=== PATIENT | male | born 1945 | race Caucasian/White ===

== ENCOUNTER 2018-02-04 15:25 | Inpatient (IN) | payer MEDICAID ==
[2018-02-04 15:44] VITALS: BMI 25.4
[2018-02-04] MEDS ORDERED: TDAP Vaccine 0.5 mL Syr IM ONE (16:08)
[2018-02-04] MEDS ORDERED: Bacitracin 500 Units/gm Oint Foilpak UD TOP ONE (16:14)
--- NOTE | 2018-02-04 16:30 | ED PDOC ---
Arrival/HPI - General Chief Complaint: Trauma Time Seen by Provider: 02/04/18 15:30 Historian: Patient, Family, Financial Officer (Son) - History of Present Illness Narrative History of Present Illness (Text): 02/04/18 16:22 A 73 year old male, whose past medical history includes diabetes, hypertension, GI bleed, and an CT with stent, presents to the emergency department accompanied by family s/p fall from earlier today. Patient refuses using boilermaker machine and requests son to translate. Patient reports he was walking when he started feeling lightheaded proceeding to faint and fell on his face and both of his knees. Patient is complaining of pain to left upper mouth and right knee. Patient states tetanus shot is not up to date. Patient denies any visual complaints, loose teeth, left knee pain, fever, chills, shortness of breath, chest pain, diarrhea, nausea, vomiting, urinary symptoms, back pain, neck pain, headache, dizziness, or any other complaints. PMD: Dr. Garcia Time/Duration: Prior to Arrival Symptom Onset: Sudden Activities at Onset: Light Context: Walking Past Medical History - Provider Review Nursing Documentation Reviewed: Yes - Infectious Disease Hx of Infectious Diseases: None - Tetanus Immunization Tetanus Immunization: Unknown - Cardiac Hx Pacemaker: No - Pulmonary Hx Respiratory Disorders: No - Neurological Hx Paralysis: No - HEENT Hx HEENT Disorder: Yes Hx Glaucoma: Yes - Renal Hx Renal Disorder: No - Endocrine/Metabolic Hx Endocrine Disorders: Yes - Hematological/Oncological Hx Blood Transfusions: No - Integumentary Hx Dermatological Disorder: No Other/Comment: multiple skin discolorations ble - Musculoskeletal/Rheumatological Hx Musculoskeletal Disorders: No - Gastrointestinal Hx Gastrointestinal Disorders: No - Genitourinary/Gynecological Hx Genitourinary Disorders: No - Psychiatric Hx Emotional Abuse: No Hx Physical Abuse: No Hx Substance Use: No - Surgical History Hx Appendectomy: Yes Hx Cardiac Catheterization: Yes Hx Coronary Stent: Yes - Anesthesia Hx Anesthesia Reactions: No Hx Malignant Hyperthermia: No - Suicidal Assessment Feels Threatened In Home Enviroment: No Family/Social History - Physician Review Nursing Documentation Reviewed: Yes Family/Social History: Unknown Family HX Smoking Status: Former Smoker Hx Alcohol Use: No Hx Substance Use: No Allergies/Home Meds Allergies/Adverse Reactions: Allergies No Known Allergies Allergy (Verified 05/29/16 08:26) Home Medications: Home Meds Medication Instructions Recorded Confirmed Glipizide [Glipizide Xl] 5 mg PO DAILY 01/07/16 06/23/16 Simvastatin [Zocor] 40 mg PO DAILY 01/07/16 06/23/16 Dorzolamide HCl/Timolol Maleat 1 drop BOTHEYES BID 05/29/16 06/23/16 [Dorzolamide-Timolol Eye Drops] Latanoprost 0.005% Opht [Xalatan 1 drop BOTHEYES HS 05/29/16 06/23/16 Opht] Tobramycin 0.3% [Tobrex 0.3% Ophth 1 drop LEFTEYE QID 05/29/16 06/23/16 Oint] Aspirin [Ecotrin] 81 mg PO DAILY 06/17/16 06/23/16 Lisinopril [Zestril] 10 mg PO DAILY 06/17/16 06/23/16 Metoprolol Tartrate [Lopressor] 12.5 tab PO BID 06/17/16 06/23/16 acetaZOLAMIDE [Acetazolamide] 500 mg PO BID 06/17/16 06/23/16 Review of Systems - Physician Review All systems were reviewed & negative as marked: Yes - Review of Systems Constitutional: absent: Fevers, Night Sweats Eyes: absent: Vision Changes (no visual complaints) ENT: Other (+pain to left upper mouth; no loose teeth) Respiratory: absent: SOB Cardiovascular: absent: Chest Pain Gastrointestinal: absent: Diarrhea, Nausea, Vomiting Genitourinary Male: absent: Urinary Output Changes Musculoskeletal: Other (+right knee pain, no left knee pain). absent: Back Pain, Neck Pain Neurological: absent: Headache, Dizziness Physical Exam Vital Signs Reviewed: Yes Vital Signs Temp Pulse Resp BP Pulse Ox 02/04/18 15:25 98 F 65 18 155/62 H 99 Temperature: Afebrile Blood Pressure: Hypertensive Pulse: Regular Respiratory Rate: Normal Appearance: Positive for: Well-Appearing, Non-Toxic, Comfortable Pain Distress: None Mental Status: Positive for: Alert and Oriented X 3 - Systems Exam Head: Present: Atraumatic, Normocephalic Pupils: Present: PERRL Extroacular Muscles: Present: EOMI Conjunctiva: Present: Normal Mouth: Present: Normal Lips (+superficial skin evulsion above left lip), Other (+left front tooth had mild bleeding to gums, not loose) Nose (External): No: Laceration Neck: Present: Normal Range of Motion Respiratory/Chest: Present: Clear to Auscultation, Good Air Exchange. No: Respiratory Distress, Accessory Muscle Use Cardiovascular: Present: Regular Rate and Rhythm, Normal S1, S2. No: Murmurs Abdomen: No: Tenderness, Distention, Peritoneal Signs Back: No: CVA Tenderness, Midline Tenderness Upper Extremity: Present: Normal Inspection. No: Cyanosis, Edema Lower Extremity: Present: NORMAL PULSES, Normal ROM, Tenderness (+tenderness to right knee) Neurological: Present: GCS=15, CN II-XII Intact, Speech Normal Skin: Present: Abrasion (+right knee abrasion, right knee greater than left knee) Psychiatric: Present: Alert, Oriented x 3, Normal Insight, Normal Concentration Medical Decision Making ED Course and Treatment: 02/04/18 16:40 Impression: 73 year old male presenting to the emergency department s/p fall. Differential Diagnosis included but are not limited to: syncope, rule out cardiac vs. neuro rule out facial fracture and knee fracture Plan: -- Head CT without contrast -- CT of Orbits and Facial without contrast -- EKG -- Labs -- CBC -- COAGs -- Chest X-ray -- Tylenol -- Bacitracin -- Boostrix vaccine -- Xray of knees bilaterally -- Reassess and disposition Prior Visits: Notes and results from previous visits were reviewed. Progress Notes: 02/04/18 16:45 EKG: Ordered, reviewed, and independently interpreted the EKG. Rate : 57 BPM Rhythm : Sinus bradycardia Interpretation : No ST-segment elevations or depressions, no T-wave inversions, normal intervals. 02/04/18 17:52 Chest and Knee Xray were reviewed by me, shows results are negative. Procedure: Head CT wihtout contrast Impression: Small chronic lacune left basal ganglia. Chronic lobar infarction inferior right cerebellum. Age-appropriate age related neuro degenerative change identified. Follow-up MRI or CT are available if clinically warranted. Dictator: Brian Velazquez MD Procedure: CT Maxillofacial bones without contrast Impression: Unremarkable non contrast enhanced CT of the maxillofacial bones. Dictator: Aurelio House 02/04/18 18:15 Case was discussed with Dr. Sewell who will place on the service. Consult requested for Dr. Pate who is on service. - RAD Interpretation Radiology Orders: 02/04/18 16:06 HEAD W/O CONTRAST [CT] Stat ORBITS/ FACIALS W/O CONTRAST [CT] Stat CXR [CHEST ONE VIEW] [RAD] Stat KNEES BILATERAL [RAD] Stat - Medication Orders Current Medication Orders: Discontinued Medications Acetaminophen (Tylenol 325mg Tab) 650 mg PO STAT STA Stop: 02/04/18 16:09 Bacitracin (Bacitracin) 1 ea TOP ONCE ONE Stop: 02/04/18 16:15 Tetanus/Reduced Diphtheria/Acell Pertussis (Boostrix Vaccine Inj) 0.5 ml IM .ONCE ONE Stop: 02/04/18 16:09 - Scribe Statement The provider has reviewed the documentation as recorded by the Tonyibelza Gonzalez All medical record entries made by the Tonyibe were at my direction and personally dictated by me. I have reviewed the chart and agree that the record accurately reflects my personal performance of the history, physical exam, medical decision making, and the department course for this patient. I have also personally directed, reviewed, and agree with the discharge instructions and disposition. Disposition/Present on Arrival - Present on Arrival Any Indicators Present on Arrival: No History of DVT/PE: No History of Uncontrolled Diabetes: No Urinary Catheter: No History of Decub. Ulcer: No History Surgical Site Infection Following: None - Disposition Have Diagnosis and Disposition been Completed?: Yes Diagnosis: Syncope Disposition: HOSPITALIZED Disposition Time: 18:16 Patient Plan: Observation Condition: FAIR Discharge Instructions (ExitCare): Syncope (ED) Forms: SeeJay (Mongolian)
[2018-02-04 17:16] LABS: BASO # 0.03 K/mm3 (0.0-2.0); BASO % 0.3 % (0.0-3.0); EOS # 0.3 (0.0-0.7); EOS % 3.4 % (1.5-5.0); GRAN # 7.11 (1.4-6.5); HEMOGLOBIN 14.8 g/dL (14.0-18.0); LYMPH # 1.3 (1.2-3.4); LYMPH % 14.1 % (22.0-35.0); MEAN CELL VOLUME 98.2 fl (80.0-105.0); MEAN CORPUSCULAR HGB CONC 33.6 g/dl (31.0-37.0); MEAN PLATELET VOLUME 11.2 fl (7.0-11.0); MONO # 0.6 (0.1-0.6); MONO % 6.2 % (1.0-6.0); RBC 4.49 10^6/uL (3.5-6.1); RED CELL DISTRIBUTION WIDTH 14.3 % (11.5-14.5); WHITE BLOOD COUNT 9.4 10^3/ul (4.5-11.0)
[2018-02-04 17:17] LABS: INR 1.03; PARTIAL THROMBOPLASTIN TIME 35.3 Seconds (25.1-36.5); PROTHROMBIN TIME 11.8 SECONDS (9.4-12.5)
[2018-02-04 17:19] LABS: ALB/GLOB RATIO 1.5 (1.1-1.8); ALBUMIN 4.2 g/dL (3.0-4.8); ALT/SGPT 28 U/L (7-56); AST/SGOT 26 U/L (17-59); BLOOD UREA NITROGEN 25 mg/dL (7-21); CALCIUM 8.8 mg/dL (8.4-10.5); GFR NON-AFRICAN AMERICAN 42
--- NOTE | 2018-02-04 17:23 | CT ---
Date of service: 02/04/2018 PROCEDURE: CT HEAD WITHOUT CONTRAST. HISTORY: r/o cva COMPARISON: None available. TECHNIQUE: Axial computed tomography images were obtained through the head/brain without intravenous contrast. Radiation dose: Total exam DLP = 1084.56 mGy-cm. This CT exam was performed using one or more of the following dose reduction techniques: Automated exposure control, adjustment of the mA and/or kV according to patient size, and/or use of iterative reconstruction technique. FINDINGS: HEMORRHAGE: No intracranial hemorrhage. BRAIN: Good corticomedullary differentiation is seen. Proportional, diffuse expansion of the ventriculosulcal and cisternal spaces is appreciated with white matter lucency compatible with diffuse cerebral atrophy and chronic microangiopathy. A chronic lobar infarct at the inferior right cerebellum is identified. A small chronic lacune is seen at the left basal ganglia. No suspicious extra-axial fluid collection is identified and the midline brain anatomy appears grossly nonfocal as imaged. There is no mass effect throughout. VENTRICLES: Unremarkable. No hydrocephalus. CALVARIUM: Unremarkable. PARANASAL SINUSES: Unremarkable as visualized. No significant inflammatory changes. MASTOID AIR CELLS: Unremarkable as visualized. No inflammatory changes. OTHER FINDINGS: None. IMPRESSION: Small chronic lacune left basal ganglia. Chronic lobar infarction inferior right cerebellum. Age-appropriate age related neuro degenerative change identified. Follow-up MRI or CT are available if clinically warranted.
[2018-02-04 17:29] LABS: TROPONIN I < 0.01 ng/mL
--- NOTE | 2018-02-04 17:51 | CT ---
Date of service: 02/04/2018 PROCEDURE: CT MAXILLOFACIAL BONES WITHOUT CONTRAST HISTORY: fall with L facial injury r/o man/max/orb fx COMPARISON: None available. TECHNIQUE: Contiguous axial CT images of the maxillofacial bones were obtained. Coronal and sagittal reformats were generated. Radiation dose: Total exam DLP = 845.69 mGy-cm. This CT exam was performed using one or more of the following dose reduction techniques: Automated exposure control, adjustment of the mA and/or kV according to patient size, and/or use of iterative reconstruction technique. FINDINGS: NASAL BONES: Unremarkable. ORBITS: Unremarkable. PARANASAL SINUSES/ MASTOIDS: Clear. MAXILLA: Unremarkable. MANDIBLE/ TEMPOROMANDIBULAR JOINTS: Unremarkable. SKULL BASE: Unremarkable. TEMPORAL BONES: Middle ears and mastoid grossly unremarkable. OTHER FINDINGS: None. IMPRESSION: Unremarkable non contrast enhanced CT of the maxillofacial bones.
[2018-02-04] MEDS ORDERED: Dextrose 50% SYRINGE Inj (50 ml) IV PRN (18:41)
--- NOTE | 2018-02-04 18:45 | CP.PCM.HP ---
History of Present Illness - History of Present Illness History of Present Illness: H&P HOSPITALIST SERVICE Chief Complaint: Syncope w/ fall HPI: 71 year old male with past medical history of DM2, HTN, Glaucoma, OR(2008), s/p coronary stenting(2009-bare metal stentx2), hx of rectal bleeding, CVA in 2008 who presents to [facility] ED complaining of passing out. Patient is joined by daughter at bedside who assists with translation. Patient indicates that he was walking on the sidewalk earlier in the afternoon when he suddenly felt weakness in his legs. He reports that as he felt the weakness he had a misstep and trippe d/fell on the sidewalk. As he was falling he reports seeing black for a moment. He fell onto his knees and then onto the front of his face. He reports coming too soon after falling and calling for help. He denies changes in vision prior to falling, loss of bowel, biting of tongue, confusion after falling. He was able to recall the events immediately following the fall. Patient indicates this is his first fall. He does report feeling weakness similar one month prior when he was noted to be pale and hypoglycemic. Patient indicates adequate liquids and solid intake. Denies numbness, tingling, changes in vision, gait instability, chest pain, shortness of breath, abdominal pain. He indicate pain associated with bruising of his anterior knees and upper lip. PMH: DM, HTN, Glaucoma, OR(2009) s/p stent, rectal bleeding, cholelithiasis, renal stones PSH: Appendectomy, Coronary stenting SOCHX: [place]: Former, 20 pack year hx, quit 20 years ago, ETOH:: Social drinker, 1 drink a week, ID: Denies - Lives in [place] with family FMH: Non contributory ALL: NKDA MEDS: Acetazolamie, Latonoprost drops, Lisinopril, glipizide, simvatatin, metoprolol tartrate, dorzolamide eye drops, tobramycin eye drops PMD: Dr. Garcia Cardio: unsure of name, EMILIE, does not regularly follow up GI: Dr. Felix Present on Admission - Present on Admission Any Indicators Present on Admission: No Review of Systems - Review of Systems All systems: reviewed and no additional remarkable complaints except (as mentioned in HPI) Past Patient History - Infectious Disease Hx of Infectious Diseases: None - Tetanus Immunizations Tetanus Immunization: Unknown - Past Medical History & Family History Past Medical History?: Yes - Past Social History Smoking Status: Former Smoker Alcohol: Social Drugs: Denies - CARDIAC Hx Pacemaker: No - PULMONARY Hx Respiratory Disorders: No - NEUROLOGICAL Hx Paralysis: No - HEENT Hx HEENT Problems: Yes Hx Glaucoma: Yes - RENAL Hx Chronic Kidney Disease: No - ENDOCRINE/METABOLIC Hx Endocrine Disorders: Yes - HEMATOLOGICAL/ONCOLOGICAL Hx Blood Transfusions: No - INTEGUMENTARY Hx Dermatological Problems: No Other/Comment: multiple skin discolorations ble - MUSCULOSKELETAL/RHEUMATOLOGICAL Hx Musculoskeletal Disorders: No - GASTROINTESTINAL Hx Gastrointestinal Disorders: No - GENITOURINARY/GYNECOLOGICAL Hx Genitourinary Disorders: No - PSYCHIATRIC Hx Emotional Abuse: No Hx Physical Abuse: No Hx Substance Use: No - SURGICAL HISTORY Hx Appendectomy: Yes Hx Cardiac Catheterization: Yes Hx Coronary Stent: Yes - ANESTHESIA Hx Anesthesia Reactions: No Hx Malignant Hyperthermia: No Meds Allergies/Adverse Reactions: Allergies Allergy/AdvReac Type Severity Reaction Status Date / Time No Known Allergies Allergy Verified 05/29/16 08:26 Physical Exam - Constitutional Appears: No Acute Distress - Head Exam Head Exam: NORMAL INSPECTION, NORMOCEPHALIC Additional comments: mild abrasion above left upper lip - Eye Exam Eye Exam: EOMI, PERRL - ENT Exam ENT Exam: Mucous Membranes Dry - Respiratory Exam Respiratory Exam: Clear to Auscultation Bilateral, NORMAL BREATHING PATTERN. absent: Rales, Rhonchi, Wheezes - Cardiovascular Exam Cardiovascular Exam: REGULAR RHYTHM, +S1, +S2 - GI/Abdominal Exam GI & Abdominal Exam: Normal Bowel Sounds, Soft. absent: Firm, Guarding, Rigid - Extremities Exam Extremities exam: Negative for: calf tenderness, pedal edema - Back Exam Back exam: absent: paraspinal tenderness - Neurological Exam Neurological exam: Alert, CN II-XII Intact, Normal Gait, Oriented x3 Additional comments: AAOX3 EOMI Mild dysmetria on exam Gait is noted to be stable with some shuffling aspect, family indicating he is at baseline heel to rocha nml, Strength 5/5 in all four extremities Able to move all four extremities past midline DTR 2/4 - Psychiatric Exam Psychiatric exam: Normal Affect, Normal Mood - Skin Skin Exam: Dry, Intact Results - Vital Signs Recent Vital Signs: Last Vital Signs Temp 98 F 02/04/18 15:25 Pulse 65 02/04/18 15:25 Resp 18 02/04/18 15:25 BP 155/62 H 02/04/18 15:25 Pulse Ox 99 02/04/18 15:25 - Labs Result Diagrams: 02/04/18 16:40 02/04/18 16:44 Labs: Laboratory Results - last 24 hr 02/04/18 02/04/18 02/04/18 16:40 16:40 16:43 WBC 9.4 D RBC 4.49 Hgb 14.8 Hct 44.1 MCV 98.2 MCH 33.0 MCHC 33.6 RDW 14.3 Plt Count 191 MPV 11.2 H Gran % 76.0 H Lymph % (Auto) 14.1 L [place] % (Auto) 6.2 H Eos % (Auto) 3.4 Baso % (Auto) 0.3 Gran # 7.11 H Lymph # (Auto) 1.3 [place] # (Auto) 0.6 Eos # (Auto) 0.3 Baso # (Auto) 0.03 PT 11.8 INR 1.03 APTT 35.3 Sodium Potassium Chloride Carbon Dioxide Anion Gap BUN Creatinine Est GFR ( Amer) Est GFR (Non-Af Amer) POC Glucose (mg/dL) 69 Random Glucose Calcium Magnesium Total Bilirubin AST ALT Alkaline Phosphatase Lactate Dehydrogenase Total Creatine Kinase Troponin I Total Protein Albumin Globulin Albumin/Globulin Ratio 02/04/18 16:44 WBC RBC Hgb Hct MCV MCH MCHC RDW Plt Count MPV Gran % Lymph % (Auto) [place] % (Auto) Eos % (Auto) Baso % (Auto) Gran # Lymph # (Auto) [place] # (Auto) Eos # (Auto) Baso # (Auto) PT INR APTT Sodium 144 Potassium 3.9 Chloride 115 H Carbon Dioxide 19 L Anion Gap 14 BUN 25 H Creatinine 1.6 H Est GFR ( Amer) 51 Est GFR (Non-Af Amer) 42 POC Glucose (mg/dL) Random Glucose 63 L Calcium 8.8 Magnesium 2.2 Total Bilirubin 0.4 AST 26 ALT 28 Alkaline Phosphatase 101 Lactate Dehydrogenase 458 Total Creatine Kinase 148 Troponin I < 0.01 Total Protein 7.0 Albumin 4.2 Globulin 2.8 Albumin/Globulin Ratio 1.5 Assessment & Plan - Assessment and Plan (Free Text) Assessment: 71 year old male with past medical history of DM2, HTN, Glaucoma, OR, s/p coronary stenting(x2 BMS), hx of rectal bleeding who presents to [facility] ED complaining of passing out. Patient with head ct and maxillofacial ct with no acute findings. Patient to be admitted for further workup and evaluation. Plan: Syncope - Etiology: vasovagul vs. hypoglycemic episode vs. volume depletion vs. arrhythmia vs. CVA - EKG showing sinus bradycardia, no ST elevations/depressions T wave intervals - CXR negative for acute process - Head CT: Small chronic lacunar left basal ganglia, chronic lobar infarction inferior right cerebellum - CT Maxillofacial bones without contrast: Unremarkable - Electrolyte wnl, - Neuro consulted, Dr. Bee. Appreciate recommendations - Cardiology consutled, Dr. Pate. Appreciate recommendations - echocariogram, carotid us Hx CAD - ASA, statin - EKG showing sinus bradycardai DM2 - ISS - low - ACHS - Hypoglycemia protocol HTN - Stable, continue to monitor Hx CVA - Head CT: Small chronic lacunar left basal ganglia, chronic lobar infarction inferior right cerebellum - ASA, statin GI/DVT ppx - Pepcid - SCD Patient seen, case and plan discussed with attending, Dr. Tobias - Date & Time Date: 02/04/18 Time: 18:45
[2018-02-04] MEDS: Insulin Lispro (humaLOG) LOW Coverage SC SCH (21:52)
--- NOTE | 2018-02-04 23:29 | CARD ---
APPROVED REPORT Date of service: 02/04/2018 EKG Measurement Heart [id number] <Conclusion> Sinus bradycardia Otherwise normal ECG
[2018-02-04] MEDS: Latanoprost 2.5 ml Opht Soln OD SCH (23:53)
--- NOTE | 2018-02-05 07:06 | CP.PCM.PN ---
<Aliyah Christensen - Last Filed: 02/05/18 13:53> Subjective - Date & Time of Evaluation Date of Evaluation: 02/05/18 Time of Evaluation: 07:06 - Subjective Subjective: [id number] Progress note for Dr. Sewell Patient seen and examined at bedside. Son at bedside. Nursing reported no acute events overnight. Patient reported feeling much better this AM. As per son patient did not have any LOC or seizure like symptoms prior to admission to [facility]. He did feel weak and has had a similar near syncopal episode in the past once and was found to have BG of 50. Patient this morning had no acute complaints of fever, chills, headache, dizziness, chest pain, SOB, palpitations, cough, abd pain, nausea, vomiting, bowel/bladder complaints, pain/swelling in legs b/l. Objective - Vital Signs/Intake and Output Vital Signs (last 24 hours): Temp Pulse Resp BP Pulse Ox 97.9 F 44 L 20 124/70 97 02/05/18 05:29 02/05/18 05:29 02/05/18 05:29 02/05/18 05:29 02/05/18 05:29 Intake and Output: 02/05/18 02/05/18 06:59 18:59 Intake Total 540 Output Total 400 Balance 140 - Medications Medications: Current Medications Acetazolamide (Diamox Sequels 500 Mg Sr Cap) 500 mg PO BID [facility] Aspirin (Ecotrin) 81 mg PO DAILY [facility] Atorvastatin Calcium (Lipitor) 20 mg PO DIN [facility] Last Admin: 02/04/18 19:47 Dose: 20 mg Dextrose (Dextrose 50% Inj) 0 ml IV STAT PRN; Protocol PRN Reason: Hypoglycemia Protocol Dorzolamide/Timolol (Cosopt 2%-0.5% Opht) 1 drop OD BID [facility] Famotidine (Pepcid) 40 mg PO HS [facility] Last Admin: 02/04/18 23:53 Dose: 40 mg Dextrose (Dextrose 5% In Water 1000 Ml) 1,000 mls @ 0 mls/hr IV .Q0M PRN; Protocol PRN Reason: Hypoglycemia Protocol Insulin Human Lispro (Humalog Low) 0 units SC ACHS [facility]; Protocol Last Admin: 02/04/18 21:52 Dose: Not Given Latanoprost (Xalatan Opht) 0 ml OD [facility] Last Admin: 02/04/18 23:53 Dose: 1 ml Lisinopril (Zestril) 10 mg PO DAILY [facility] Metoprolol Tartrate (Lopressor) 12.5 mg PO BID [facility] Tobramycin Sulfate (Tobrex 0.3% Ophth Oint) 0 appl OD QID [facility] - Labs Labs: 02/04/18 16:40 02/04/18 16:44 PT 11.8 SECONDS (9.4-12.5) 02/04/18 16:40 INR 1.03 02/04/18 16:40 APTT 35.3 Seconds (25.1-36.5) 02/04/18 16:40 - Constitutional Appears: Non-toxic, No Acute Distress - Head Exam Head Exam: NORMAL INSPECTION, NORMOCEPHALIC - Eye Exam Eye Exam: EOMI, Normal appearance, PERRL. absent: Conjunctival injection, Scleral icterus Pupil Exam: NORMAL ACCOMODATION - ENT Exam ENT Exam: Mucous Membranes Moist - Respiratory Exam Respiratory Exam: Clear to Ausculation Bilateral, NORMAL BREATHING PATTERN. absent: Accessory Muscle Use, Rales, Rhonchi, Wheezes, Respiratory Distress - Cardiovascular Exam Cardiovascular Exam: REGULAR RHYTHM, +S1, +S2 - GI/Abdominal Exam GI & Abdominal Exam: Soft, Normal Bowel Sounds. absent: Firm, Guarding, Rigid, Tenderness - Rectal Exam Rectal Exam: Deferred - Extremities Exam Extremities Exam: Normal Capillary Refill, Normal Inspection. absent: Pedal Edema - Neurological Exam Neurological Exam: Alert, Awake, Oriented x3 - Psychiatric Exam Psychiatric exam: Normal Affect, Normal Mood - Skin Skin Exam: Dry, Intact, Normal Color, Warm Assessment and Plan - Assessment and Plan (Free Text) Assessment: 71yo male PMHx DM2, HTN, Glaucoma, ME, s/p coronary stents (x2 BMS), hx of rectal bleeding 1 year ago presented to [facility] ED with near syncopal episode. Head CT and Maxillofacial CT unremarkable. Patient admitted for further workup and evaluation. Plan: Near Syncope - Etiology: vasovagul vs. hypoglycemic episode vs. volume depletion vs. arrhythmia vs. CVA - EKG showing sinus bradycardia, no ST elevations/depressions T wave intervals - CXR negative for acute process - Head CT: Small chronic lacunar left basal ganglia, chronic lobar infarction inferior right cerebellum - CT Maxillofacial bones without contrast: Unremarkable - Electrolyte wnl - Tobramycin for abrasion - Lopressor on hold - f/u Echo and Carotid - Neuro consulted, Dr. Bee. Appreciate recommendations - Cardiology consutled, Dr. Pate. Appreciate recommendations Hx CAD - ASA 81mg po qd - Lipitor 20mg po hs - EKG showing sinus bradycardia - HHD DM2 - ISS low - ACHS - Hypoglycemia protocol HTN - Lisinopril, - Stable, continue to monitor Hx of Hypothyroidism - Synthroid 25mg po qd Hx CVA - Head CT: Small chronic lacunar left basal ganglia, chronic lobar infarction inferior right cerebellum - ASA, statin Hx of Glaucoma - Xalatan opht od hs - Dorzolamid/Timolol 1dop bid GI/DVT ppx - Pepcid - SCD Discussed with Dr. Melodie Christensen PGY3 <Corazon Sewell - Last Filed: 02/06/18 12:59> Objective - Vital Signs/Intake and Output Vital Signs (last 24 hours): Temp Pulse Resp BP Pulse Ox 98.4 F 60 19 128/62 97 02/06/18 06:00 02/06/18 10:21 02/06/18 06:00 02/06/18 10:21 02/06/18 06:00 Intake and Output: 02/06/18 02/06/18 06:59 18:59 Intake Total 200 Output Total 0 Balance 200 - Medications Medications: Current Medications Acetazolamide (Diamox Sequels 500 Mg Sr Cap) 500 mg PO BID [facility] Last Admin: 02/06/18 10:21 Dose: 500 mg Aspirin (Ecotrin) 81 mg PO DAILY [facility] Last Admin: 02/06/18 10:21 Dose: 81 mg Atorvastatin Calcium (Lipitor) 20 mg PO DIN [facility] Last Admin: 02/05/18 16:59 Dose: 20 mg Dextrose (Dextrose 50% Inj) 0 ml IV STAT PRN; Protocol PRN Reason: Hypoglycemia Protocol Dorzolamide/Timolol (Cosopt 2%-0.5% Opht) 1 drop OD BID [facility] Last Admin: 02/06/18 10:19 Dose: 1 drop Famotidine (Pepcid) 40 mg PO HS [facility] Last Admin: 02/05/18 22:31 Dose: 40 mg Dextrose (Dextrose 5% In Water 1000 Ml) 1,000 mls @ 0 mls/hr IV .Q0M PRN; Protocol PRN Reason: Hypoglycemia Protocol Insulin Human Lispro (Humalog Low) 0 units SC ACHS [facility]; Protocol Last Admin: 02/06/18 12:26 Dose: Not Given Latanoprost (Xalatan Opht) 0 ml OD HS [facility] Last Admin: 02/05/18 22:31 Dose: 2.5 ml Levothyroxine Sodium (Synthroid) 25 mcg PO 0600 [facility] Last Admin: 02/06/18 06:15 Dose: 25 mcg Lisinopril (Zestril) 10 mg PO DAILY [facility] Last Admin: 02/06/18 10:21 Dose: 10 mg Metoprolol Tartrate (Lopressor) 12.5 mg PO BID [facility] Last Admin: 02/05/18 10:27 Dose: 12.5 mg Tobramycin Sulfate (Tobrex 0.3% Ophth Oint) 0 appl OD QID [facility] Last Admin: 02/06/18 10:19 Dose: 1 applic - Labs Labs: 02/06/18 07:00 02/06/18 07:00 PT 11.8 SECONDS (9.4-12.5) 02/04/18 16:40 INR 1.03 02/04/18 16:40 APTT 35.3 Seconds (25.1-36.5) 02/04/18 16:40 Attending/Attestation - Attestation I have personally seen and examined this patient.: Yes I have fully participated in the care of the patient.: Yes I have reviewed all pertinent clinical information, including history, physical exam and plan: Yes Notes (Text): Attending note; Patient seen and examined with resident. Patient is alert and awake. Patient's son by the bedside. Currently patient denies any dizziness. Denies any headache, nausea, vomiting. Tolerating diet well. Walked to the bathroom without difficulty with assistance. Patient is a 71-year-old [place] male with PMHx of DM2, HTN, Glaucoma, ME, s /p coronary stents, hx of rectal bleeding 1 year ago presented to [facility] ED with syncopal episode. Head CT and Maxillofacial CT unremarkable. Patient admitted for further workup and evaluation. Patient has minor abrasion in both knees and a small injury above the right lip. Denies any urinary or bowel incontinence. Currently denies any chest pain, shortness of breath. Syncope; CT head is negative. Carotid Doppler ordered. Neurology evaluation requested. Bradycardia: cardiac enzymes negative .patient with history of coronary artery disease. Cardiology evaluation requested. Monitor closely. Echocardiogram ordered. Hold metoprolol for bradycardia. Continue aspirin, Lipitor and lisinopril. Physical therapy evaluation requested. The diagnosis and follow-up plan discussed with patient's son in detail. Upon discharge the patient will follow up with PMD Dr. Butler.
[2018-02-05 07:25] LABS: BARBITURATES, UR NEGATIVE (NEGATIVE); OPIATES, UR NEGATIVE (NEGATIVE); PHENCYCLIDINE, UR NEGATIVE (NEGATIVE)
[2018-02-05 07:34] LABS: BENZODIAZEPINES, UR NEGATIVE (NEGATIVE)
[2018-02-05 07:48] LABS: BASO # 0.04 K/mm3 (0.0-2.0); BASO % 0.6 % (0.0-3.0); EOS # 0.3 (0.0-0.7); EOS % 4.9 % (1.5-5.0); GRAN # 3.56 (1.4-6.5); GRAN % 55.9 % (50.0-68.0); HEMOGLOBIN 13.7 g/dL (14.0-18.0); LYMPH # 1.9 (1.2-3.4); MEAN CELL VOLUME 96.3 fl (80.0-105.0); MEAN CORPUSCULAR HEMOGLOBIN 31.8 pg (25.0-35.0); MEAN PLATELET VOLUME 10.9 fl (7.0-11.0); MONO # 0.6 (0.1-0.6); MONO % 9.6 % (1.0-6.0); RBC 4.31 10^6/uL (3.5-6.1); RED CELL DISTRIBUTION WIDTH 14.2 % (11.5-14.5); WHITE BLOOD COUNT 6.4 10^3/ul (4.5-11.0)
[2018-02-05] MEDS: Insulin Lispro (humaLOG) LOW Coverage SC SCH ×4 (08:42→21:33)
[2018-02-05 09:30] LABS: CALCIUM 8.2 mg/dL (8.4-10.5)
[2018-02-05 09:31] LABS: ALB/GLOB RATIO 1.3 (1.1-1.8); ALBUMIN 3.5 g/dL (3.0-4.8)
[2018-02-05 09:36] LABS: TROPONIN I 0.01 ng/mL
[2018-02-05 09:42] LABS: FREE T4 0.75 ng/dL (0.78-2.19)
--- NOTE | 2018-02-05 11:20 | RAD ---
Date of service: 02/04/2018 PROCEDURE: CHEST RADIOGRAPH, 1 VIEW HISTORY: syncope COMPARISON: None available. FINDINGS: LUNGS: Clear. PLEURA: No pneumothorax or pleural fluid seen. CARDIOVASCULAR: Mild cardiomegaly OSSEOUS STRUCTURES: No significant abnormalities. VISUALIZED UPPER ABDOMEN: Normal. OTHER FINDINGS: None. IMPRESSION: No active disease.
[2018-02-05] MEDS: acetaZOLAMIDE 500 mg SR Cap PO SCH ×2 (11:47→16:59)
[2018-02-05] MEDS: Tobramycin 0.3% OPH OINT OD SCH ×4 (11:49→22:30)
[2018-02-05] MEDS: Dorzolamide 2%/Timolol 0.5% 100 DROP/10 ML BOTTLE OD SCH ×2 (11:49→17:00)
--- NOTE | 2018-02-05 12:05 | RAD ---
Date of service: 02/04/2018 PROCEDURE: Bilateral Knee Radiographs. HISTORY: fall r/o fx COMPARISON: None. FINDINGS: BONES: Right Knee: Normal. No fracture. Left Knee: Normal. No fracture. JOINTS: Right Knee: Normal. No osteoarthritis. Left knee: Normal. No osteoarthritis. SOFT TISSUES: Right Knee: Normal. Left Knee: Normal. JOINT EFFUSION: Right Knee: None. Left Knee: None. OTHER FINDINGS: None. IMPRESSION: Normal radiographs of the knees.
[2018-02-05] MEDS ORDERED: Potassium Chloride 20 mEq ER Tab PO ONE (13:25)
--- NOTE | 2018-02-05 14:52 | CP.PCM.CON ---
History of Present Illness - History of Present Illness History of Present Illness: Neurology Consultation Note: Mr. Garcia is a 73-year-old man with a past medical history of DM2, HTN, Glaucoma, [place](2008), s/p coronary stenting(2009-bare metal stentx2), hx of rectal bleeding, CVA in 2008 who presented to the ED yesterday after a syncopal episode associated with a mechanical fall. There was no reported urinary/bowel incontinence, abnormal shaking movements, or confusion afterward. The patient states that he only "blacked out" for a brief few seconds as he fell down. Review of Systems - Review of Systems All systems: reviewed and no additional remarkable complaints except Past Patient History - Infectious Disease Hx of Infectious Diseases: None - Tetanus Immunizations Tetanus Immunization: Unknown - Past Medical History & Family History Past Medical History?: Yes - Past Social History Smoking Status: Former Smoker Alcohol: Social Drugs: Denies - CARDIAC Hx Pacemaker: No - PULMONARY Hx Respiratory Disorders: No - NEUROLOGICAL Hx Paralysis: No - HEENT Hx HEENT Problems: Yes Hx Glaucoma: Yes - RENAL Hx Chronic Kidney Disease: No - ENDOCRINE/METABOLIC Hx Endocrine Disorders: Yes - HEMATOLOGICAL/ONCOLOGICAL Hx Blood Transfusions: No - INTEGUMENTARY Hx Dermatological Problems: No Other/Comment: multiple skin discolorations ble - MUSCULOSKELETAL/RHEUMATOLOGICAL Hx Musculoskeletal Disorders: No - GASTROINTESTINAL Hx Gastrointestinal Disorders: No - GENITOURINARY/GYNECOLOGICAL Hx Genitourinary Disorders: No - PSYCHIATRIC Hx Emotional Abuse: No Hx Physical Abuse: No Hx Substance Use: No - SURGICAL HISTORY Hx Appendectomy: Yes Hx Cardiac Catheterization: Yes Hx Coronary Stent: Yes - ANESTHESIA Hx Anesthesia Reactions: No Hx Malignant Hyperthermia: No Meds Allergies/Adverse Reactions: Allergies Allergy/AdvReac Type Severity Reaction Status Date / Time No Known Allergies Allergy Verified 05/29/16 08:26 - Medications Medications: Current Medications Acetazolamide (Diamox Sequels 500 Mg Sr Cap) 500 mg PO BID [facility] Last Admin: 02/05/18 11:47 Dose: 500 mg Aspirin (Ecotrin) 81 mg PO DAILY [facility] Last Admin: 02/05/18 10:28 Dose: 81 mg Atorvastatin Calcium (Lipitor) 20 mg PO DIN [facility] Last Admin: 02/04/18 19:47 Dose: 20 mg Dextrose (Dextrose 50% Inj) 0 ml IV STAT PRN; Protocol PRN Reason: Hypoglycemia Protocol Dorzolamide/Timolol (Cosopt 2%-0.5% Opht) 1 drop OD BID [facility] Last Admin: 02/05/18 11:49 Dose: 1 drop Famotidine (Pepcid) 40 mg PO HS [facility] Last Admin: 02/04/18 23:53 Dose: 40 mg Dextrose (Dextrose 5% In Water 1000 Ml) 1,000 mls @ 0 mls/hr IV .Q0M PRN; Protocol PRN Reason: Hypoglycemia Protocol Insulin Human Lispro (Humalog Low) 0 units SC ACHS [facility]; Protocol Last Admin: 02/05/18 11:58 Dose: 1 unit Latanoprost (Xalatan Opht) 0 ml OD HS [facility] Last Admin: 02/04/18 23:53 Dose: 1 ml Levothyroxine Sodium (Synthroid) 25 mcg PO 0600 [facility] Lisinopril (Zestril) 10 mg PO DAILY [facility] Last Admin: 02/05/18 10:28 Dose: 10 mg Metoprolol Tartrate (Lopressor) 12.5 mg PO BID [facility] Last Admin: 02/05/18 10:27 Dose: 12.5 mg Tobramycin Sulfate (Tobrex 0.3% Ophth Oint) 0 appl OD QID [facility] Last Admin: 02/05/18 13:39 Dose: 1 applic Physical Exam - Constitutional Appears: Well - Head Exam Head Exam: ATRAUMATIC, NORMAL INSPECTION, NORMOCEPHALIC - Eye Exam Eye Exam: EOMI, Normal appearance, PERRL - ENT Exam ENT Exam: Mucous Membranes Moist, Normal Exam - Neck Exam Neck exam: Positive for: Normal Inspection - Cardiovascular Exam Cardiovascular Exam: REGULAR RHYTHM - Rectal Exam Rectal Exam: Deferred - Extremities Exam Extremities exam: Positive for: normal inspection - Back Exam Back exam: NORMAL INSPECTION - Neurological Exam Neurological exam: Alert, CN II-XII Intact, Normal Gait, Oriented x3, Reflexes Normal - Psychiatric Exam Psychiatric exam: Normal Affect, Normal Mood - Skin Additional comments: abrasion on face Results - Vital Signs Recent Vital Signs: Last Vital Signs Temp 98.5 F 02/05/18 12:00 Pulse 51 L 02/05/18 12:00 Resp 17 02/05/18 12:00 BP 146/66 02/05/18 12:00 Pulse Ox 97 02/05/18 05:29 - Labs Result Diagrams: 02/05/18 07:00 02/05/18 07:00 Labs: Laboratory Results - last 24 hr 02/04/18 02/04/18 02/04/18 16:40 16:40 16:43 WBC 9.4 D RBC 4.49 Hgb 14.8 Hct 44.1 MCV 98.2 MCH 33.0 MCHC 33.6 RDW 14.3 Plt Count 191 MPV 11.2 H Gran % 76.0 H Lymph % (Auto) 14.1 L Archuleta % (Auto) 6.2 H Eos % (Auto) 3.4 Baso % (Auto) 0.3 Gran # 7.11 H Lymph # (Auto) 1.3 Arch[place]ta # (Auto) 0.6 Eos # (Auto) 0.3 Baso # (Auto) 0.03 PT 11.8 INR 1.03 APTT 35.3 Sodium Potassium Chloride Carbon Dioxide Anion Gap BUN Creatinine Est GFR ( Amer) Est GFR (Non-Af Amer) POC Glucose (mg/dL) 69 Random Glucose Calcium Phosphorus Magnesium Total Bilirubin AST ALT Alkaline Phosphatase Lactate Dehydrogenase Total Creatine Kinase Troponin I Total Protein Albumin Globulin Albumin/Globulin Ratio Free T4 TSH 3rd Generation Urine Opiates Screen Urine Methadone Screen Ur Barbiturates Screen Ur Phencyclidine Scrn Ur Amphetamines Screen U Benzodiazepines Scrn U Oth Cocaine Metabols U Cannabinoids Screen 02/04/18 02/04/18 02/04/18 16:44 18:00 18:26 WBC RBC Hgb Hct MCV MCH MCHC RDW Plt Count MPV Gran % Lymph % (Auto) Archuleta % (Auto) Eos % (Auto) Baso % (Auto) Gran # Lymph # (Auto) [place] # (Auto) Eos # (Auto) Baso # (Auto) PT INR APTT Sodium 144 Potassium 3.9 Chloride 115 H Carbon Dioxide 19 L Anion Gap 14 BUN 25 H Creatinine 1.6 H Est GFR ( Amer) 51 Est GFR (Non-Af Amer) 42 POC Glucose (mg/dL) 117 H Random Glucose 63 L Calcium 8.8 Phosphorus 3.2 Magnesium 2.2 Total Bilirubin 0.4 AST 26 ALT 28 Alkaline Phosphatase 101 Lactate Dehydrogenase 458 Total Creatine Kinase 148 Troponin I < 0.01 Total Protein 7.0 Albumin 4.2 Globulin 2.8 Albumin/Globulin Ratio 1.5 Free T4 TSH 3rd Generation Urine Opiates Screen Urine Methadone Screen Ur Barbiturates Screen Ur Phencyclidine Scrn Ur Amphetamines Screen U Benzodiazepines Scrn U Oth Cocaine Metabols U Cannabinoids Screen 02/04/18 02/05/18 02/05/18 21:13 06:00 07:00 WBC 6.4 D RBC 4.31 Hgb 13.7 L Hct 41.5 L MCV 96.3 MCH 31.8 MCHC 33.0 RDW 14.2 Plt Count 180 MPV 10.9 Gran % 55.9 Lymph % (Auto) 29.0 Archule[place] % (Auto) 9.6 H Eos % (Auto) 4.9 Baso % (Auto) 0.6 Gran # 3.56 Lymph # (Auto) 1.9 Arch[place] # (Auto) 0.6 Eos # (Auto) 0.3 Baso # (Auto) 0.04 PT INR APTT Sodium Potassium Chloride Carbon Dioxide Anion Gap BUN Creatinine Est GFR ( Amer) Est GFR (Non-Af Amer) POC Glucose (mg/dL) 126 H Random Glucose Calcium Phosphorus Magnesium Total Bilirubin AST ALT Alkaline Phosphatase Lactate Dehydrogenase Total Creatine Kinase Troponin I Total Protein Albumin Globulin Albumin/Globulin Ratio Free T4 TSH 3rd Generation Urine Opiates Screen Negative Urine Methadone Screen Negative Ur Barbiturates Screen Negative Ur Phencyclidine Scrn Negative Ur Amphetamines Screen Negative U Benzodiazepines Scrn Negative U Oth Cocaine Metabols Negative U Cannabinoids Screen Negative 02/05/18 02/05/18 02/05/18 07:00 07:00 07:38 WBC RBC Hgb Hct MCV MCH MCHC RDW Plt Count MPV Gran % Lymph % (Auto) Archule[place] % (Auto) Eos % (Auto) Baso % (Auto) Gran # Lymph # (Auto) [place]ule[place] # (Auto) Eos # (Auto) Baso # (Auto) PT INR APTT Sodium 144 Potassium 3.4 L Chloride 119 H Carbon Dioxide 17 L Anion Gap 11 BUN 22 H Creatinine 1.5 Est GFR ( Amer) 55 Est GFR (Non-Af Amer) 46 POC Glucose (mg/dL) 82 Random Glucose 86 Calcium 8.2 L Phosphorus Magnesium Total Bilirubin 0.6 AST 23 ALT 26 Alkaline Phosphatase 73 Lactate Dehydrogenase Total Creatine Kinase Troponin I 0.01 Total Protein 6.3 Albumin 3.5 Globulin 2.8 Albumin/Globulin Ratio 1.3 Free T4 0.75 L TSH 3rd Generation 7.16 H Urine Opiates Screen Urine Methadone Screen Ur Barbiturates Screen Ur Phencyclidine Scrn Ur Amphetamines Screen U Benzodiazepines Scrn U Oth Cocaine Metabols U Cannabinoids Screen 02/05/18 11:27 WBC RBC Hgb Hct MCV MCH MCHC RDW Plt Count MPV Gran % Lymph % (Auto) [place] % (Auto) Eos % (Auto) Baso % (Auto) Gran # Lymph # (Auto) [place] # (Auto) Eos # (Auto) Baso # (Auto) PT INR APTT Sodium Potassium Chloride Carbon Dioxide Anion Gap BUN Creatinine Est GFR ( Amer) Est GFR (Non-Af Amer) POC Glucose (mg/dL) 179 H Random Glucose Calcium Phosphorus Magnesium Total Bilirubin AST ALT Alkaline Phosphatase Lactate Dehydrogenase Total Creatine Kinase Troponin I Total Protein Albumin Globulin Albumin/Globulin Ratio Free T4 TSH 3rd Generation Urine Opiates Screen Urine Methadone Screen Ur Barbiturates Screen Ur Phencyclidine Scrn Ur Amphetamines Screen U Benzodiazepines Scrn U Oth Cocaine Metabols U Cannabinoids Screen Assessment & Plan (1) Syncope Assessment and Plan: Likely due to vaso-vagal or neuro-cardiogenic causes. I recommend hydration and obtaining a MRI brain and MRA of the head/neck (without contrast) to rule out any vertebro-basilar insufficiency. Continue telemetry and consider loop recorder, if cardiology agrees. Continue secondary stroke prevention with aspirin and lipitor, considering the patient's history. Status: Acute
[2018-02-05] MEDS: Latanoprost 2.5 ml Opht Soln OD SCH (22:31)
--- NOTE | 2018-02-06 00:51 | CON ---
DATE: 02/05/2018 REASON FOR DICTATION: Covering Dr. Keshawn Pate. REASON FOR CONSULTATION: Syncope, history of coronary artery disease, history of CABG, history of PTCA. BRIEF CLINICAL HISTORY: This is a 73-year-old Finnish male with past medical history significant for diabetes, hypertension, hyperlipidemia, coronary artery disease, status post CABG 20 years ago in [facility], history of bare metal stent x2 in 2008, history of CVA, history of glaucoma, came into [facility] after he was taking his grandson to the school, crossing suddenly he felt very weak and then he fell down. Denies any chest pain, denies any shortness of breath, denies any palpitation. PAST MEDICAL HISTORY: Significant for diabetes, hypertension, hyperlipidemia, glaucoma, history of coronary artery disease, history of coronary artery bypass surgery 20 years ago in [facility], history of stent in 2008, rectal bleeding. PAST SURGICAL HISTORY: Significant for coronary artery bypass surgery as per family, but did not see any surgical clip, history of MT in 2008, history of stent in [facility], history of appendectomy. SOCIAL HISTORY: Ex-smoker many years ago, history of socially drinking. Denies any history of alcohol abuse. CURRENT MEDICATIONS: Patient is taking at home,acetazolamide, tobramycin eye drops, Lopressor 12.5 twice a day, lisinopril 10 mg daily, simvastatin, and glipizide. ALLERGIES: NO KNOWN DRUG ALLERGY. PHYSICAL EXAMINATION: VITAL SIGNS: Temperature afebrile, heart rate 51, blood pressure 146/66. HEENT: PERRLA. Extraocular muscles intact. NECK: Supple. No carotid bruit or thyromegaly. CHEST: Clear to auscultation. HEART: S1 and S2 regular. ABDOMEN: Soft. EXTREMITIES: Clubbing and cyanosis, negative. LABORATORY DATA: WBC 6.4, hemoglobin 13.7, hematocrit 41.5, platelet count 180. Chemistry shows sodium 144, potassium 3.4, chloride 119, carbon dioxide 17, anion gap of 11, BUN 22, creatinine 1.5. Troponin remains 0.04, negative. EKG shows normal sinus bradycardia, rate of 52. IMPRESSION: Status post syncope, history of coronary artery disease, history of coronary artery bypass surgery according to the family 10 years ago in [facility], but no surgical external clip noted. History of coronary artery disease, history of stent in 2008, diabetes, hypertension, hyperlipidemia. So far no evidence of acute myocardial infarction. RECOMMENDATIONS: We will get followup CPK, troponin, start low dose , echo to assess LV function, orthostatic hypotension, consider stress test for risk stratification. Patient has his own [employer], being followed by them. If not them, we will consider stress test on Wednesday. We will transfer care on Wednesday to Dr. Keshawn Pate. We will start low dose of Levoxyl. Echo, lipid profile, and orthostatic hypotension. Also, we will get hemoglobin A1c. Thank you, Dr. Sewell, for providing us the opportunity in taking care of the patient, Ashlie Garcia. Krzysztof Cuevas MD cc: Corazon Sewell MD.
[2018-02-06] MEDS: Levothyroxine 25 MCG TAB PO SCH (06:15)
[2018-02-06 08:23] LABS: BASO # 0.06 K/mm3 (0.0-2.0); BASO % 0.9 % (0.0-3.0); EOS # 0.4 (0.0-0.7); EOS % 6.2 % (1.5-5.0); GRAN # 3.81 (1.4-6.5); GRAN % 57.1 % (50.0-68.0); HEMOGLOBIN 14.3 g/dL (14.0-18.0); LYMPH # 1.8 (1.2-3.4); LYMPH % 26.6 % (22.0-35.0); MEAN CELL VOLUME 95.9 fl (80.0-105.0); MEAN CORPUSCULAR HEMOGLOBIN 32.5 pg (25.0-35.0); MEAN CORPUSCULAR HGB CONC 33.9 g/dl (31.0-37.0); MONO # 0.6 (0.1-0.6); MONO % 9.2 % (1.0-6.0); RBC 4.4 10^6/uL (3.5-6.1); RED CELL DISTRIBUTION WIDTH 14.3 % (11.5-14.5); WHITE BLOOD COUNT 6.7 10^3/ul (4.5-11.0)
[2018-02-06 08:45] LABS: ALB/GLOB RATIO 1.3 (1.1-1.8); ALBUMIN 3.6 g/dL (3.0-4.8); CALCIUM 8.5 mg/dL (8.4-10.5)
--- NOTE | 2018-02-06 09:18 | CP.PCM.PN ---
<Abrahan Vang R - Last Filed: 02/06/18 09:11> Subjective - Date & Time of Evaluation Date of Evaluation: 02/06/18 Time of Evaluation: 09:11 - Subjective Subjective: PGY-[address] Sewell No acute events noted overnight. Patient resting comfortably in bed. Denied being in discomfort or pain. Denied chest pain. Patient's son will return in the afternoon at which time we'll go see patient again to gather a more complete review of systems. Objective - Vital Signs/Intake and Output Vital Signs (last 24 hours): Temp Pulse Resp BP Pulse Ox 98.4 F 60 19 159/91 H 97 02/06/18 06:00 02/06/18 06:00 02/06/18 06:00 02/06/18 06:00 02/06/18 06:00 Intake and Output: 02/06/18 02/06/18 06:59 18:59 Intake Total 200 Output Total 0 Balance 200 - Medications Medications: Current Medications Acetazolamide (Diamox Sequels 500 Mg Sr Cap) 500 mg PO BID [facility] Last Admin: 02/05/18 16:59 Dose: 500 mg Aspirin (Ecotrin) 81 mg PO DAILY [facility] Last Admin: 02/05/18 10:28 Dose: 81 mg Atorvastatin Calcium (Lipitor) 20 mg PO DIN [facility] Last Admin: 02/05/18 16:59 Dose: 20 mg Dextrose (Dextrose 50% Inj) 0 ml IV STAT PRN; Protocol PRN Reason: Hypoglycemia Protocol Dorzolamide/Timolol (Cosopt 2%-0.5% Opht) 1 drop OD BID [facility] Last Admin: 02/05/18 17:00 Dose: 1 drop Famotidine (Pepcid) 40 mg PO HS [facility] Last Admin: 02/05/18 22:31 Dose: 40 mg Dextrose (Dextrose 5% In Water 1000 Ml) 1,000 mls @ 0 mls/hr IV .Q0M PRN; Protocol PRN Reason: Hypoglycemia Protocol Insulin Human Lispro (Humalog Low) 0 units SC ACHS [facility]; Protocol Last Admin: 02/05/18 21:33 Dose: Not Given Latanoprost (Xalatan Opht) 0 ml OD [facility] Last Admin: 02/05/18 22:31 Dose: 2.5 ml Levothyroxine Sodium (Synthroid) 25 mcg PO 0600 [facility] Last Admin: 02/06/18 06:15 Dose: 25 mcg Lisinopril (Zestril) 10 mg PO DAILY [facility] Last Admin: 02/05/18 10:28 Dose: 10 mg Metoprolol Tartrate (Lopressor) 12.5 mg PO BID [facility] Last Admin: 02/05/18 10:27 Dose: 12.5 mg Tobramycin Sulfate (Tobrex 0.3% Ophth Oint) 0 appl OD QID [facility] Last Admin: 02/05/18 22:30 Dose: 1 applic - Labs Labs: 02/06/18 07:00 02/06/18 07:00 PT 11.8 SECONDS (9.4-12.5) 02/04/18 16:40 INR 1.03 02/04/18 16:40 APTT 35.3 Seconds (25.1-36.5) 02/04/18 16:40 - Additional Findings Additional findings: - Constitutional Appears: Non-toxic, No Acute Distress - Head Exam Head Exam: NORMAL INSPECTION, NORMOCEPHALIC - Eye Exam Eye Exam: EOMI, Normal appearance, PERRL. absent: Conjunctival injection, Scleral icterus Pupil Exam: NORMAL ACCOMODATION - ENT Exam ENT Exam: Mucous Membranes Moist - Respiratory Exam Respiratory Exam: Clear to Ausculation Bilateral, NORMAL BREATHING PATTERN. absent: Accessory Muscle Use, Rales, Rhonchi, Wheezes, Respiratory Distress - Cardiovascular Exam Cardiovascular Exam: REGULAR RHYTHM, +S1, +S2 - GI/Abdominal Exam GI & Abdominal Exam: Soft, Normal Bowel Sounds. absent: Firm, Guarding, Rigid, Tenderness - Rectal Exam Rectal Exam: Deferred - Extremities Exam Extremities Exam: Normal Capillary Refill, Normal Inspection. absent: Pedal Edema - Neurological Exam Neurological Exam: Alert, Awake, Oriented x3 - Psychiatric Exam Psychiatric exam: Normal Affect, Normal Mood - Skin Skin Exam: Dry, Intact, Normal Color, Warm Assessment and Plan - Assessment and Plan (Free Text) Plan: 71yo male PMHx DM2, HTN, Glaucoma, [place], s/p coronary stents (x2 BMS), hx of rectal bleeding 1 year ago [place] [facility] [place] with near syncopal episode. Head CT and Maxillofacial CT unremarkable. Patient admitted for further workup and evaluation. Plan: Near Syncope - Etiology: vasovagul vs. hypoglycemic episode vs. volume depletion vs. arrhythmia vs. CVA - EKG showing sinus bradycardia, no ST elevations/depressions T wave intervals - CXR negative for acute process - Head CT: Small chronic lacunar left basal ganglia, chronic lobar infarction inferior right cerebellum - CT Maxillofacial bones without contrast: Unremarkable - Electrolyte wnl - Tobramycin for abrasion - Lopressor on hold - Neuro consulted, Dr. Bee. Appreciate recommendations * Likely due to vaso-vagal or neuro-cardiogenic causes * recommend hydration and obtaining a MRI brain and MRA of the head/neck (without contrast) to rule out any vertebro-basilar insufficiency * consider loop recorder, if cardiology agrees * continue secondary stroke prevention with aspirin and lipitor - Cardiology consutled, Dr. Pate. Appreciate recommendations * consider stress test for risk stratification * patient has his own inspector final assembly electrical, if not them, Dr Pate will consider stress test on 02/07 - f/u Brain MRI, head/neck MRA, echo and carotid ultrasound Hx CAD - ASA 81mg po qd - Lipitor 20mg po hs - EKG showing sinus bradycardia - Heart Healthy Diet DM2 - ISS low - ACHS - Hypoglycemia protocol HTN - Lisinopril, - Stable, continue to monitor Hx of Hypothyroidism - Synthroid 25mg po qd Hx CVA - Head CT: Small chronic lacunar left basal ganglia, chronic lobar infarction inferior right cerebellum - ASA, statin Hx of Glaucoma - Xalatan opht od hs - Dorzolamid/Timolol 1dop bid GI/DVT ppx - Pepcid - SCD Discussed with Dr. Sewell <Corazon Sewell - Last Filed: 02/06/18 13:03> Objective - Vital Signs/Intake and Output Vital Signs (last 24 hours): Temp Pulse Resp BP Pulse Ox 98.4 F 60 19 128/62 97 02/06/18 06:00 02/06/18 10:21 02/06/18 06:00 02/06/18 10:21 02/06/18 06:00 Intake and Output: 02/06/18 02/06/18 06:59 18:59 Intake Total 200 Output Total 0 Balance 200 - Medications Medications: Current Medications Acetazolamide (Diamox Sequels 500 Mg Sr Cap) 500 mg PO BID [facility] Last Admin: 02/06/18 10:21 Dose: 500 mg Aspirin (Ecotrin) 81 mg PO DAILY [facility] Last Admin: 02/06/18 10:21 Dose: 81 mg Atorvastatin Calcium (Lipitor) 20 mg PO DIN [facility] Last Admin: 02/05/18 16:59 Dose: 20 mg Dextrose (Dextrose 50% Inj) 0 ml IV STAT PRN; Protocol PRN Reason: Hypoglycemia Protocol Dorzolamide/Timolol (Cosopt 2%-0.5% Opht) 1 drop OD BID [facility] Last Admin: 02/06/18 10:19 Dose: 1 drop Famotidine (Pepcid) 40 mg PO HS [facility] Last Admin: 02/05/18 22:31 Dose: 40 mg Dextrose (Dextrose 5% In Water 1000 Ml) 1,000 mls @ 0 mls/hr IV .Q0M PRN; Protocol PRN Reason: Hypoglycemia Protocol Insulin Human Lispro (Humalog Low) 0 units SC ACHS [facility]; Protocol Last Admin: 02/06/18 12:26 Dose: Not Given Latanoprost (Xalatan Opht) 0 ml OD HS [facility] Last Admin: 02/05/18 22:31 Dose: 2.5 ml Levothyroxine Sodium (Synthroid) 25 mcg PO 0600 [facility] Last Admin: 02/06/18 06:15 Dose: 25 mcg Lisinopril (Zestril) 10 mg PO DAILY [facility] Last Admin: 02/06/18 10:21 Dose: 10 mg Metoprolol Tartrate (Lopressor) 12.5 mg PO BID [facility] Last Admin: 02/05/18 10:27 Dose: 12.5 mg Tobramycin Sulfate (Tobrex 0.3% Ophth Oint) 0 appl OD QID [facility] Last Admin: 02/06/18 10:19 Dose: 1 applic - Labs Labs: 02/06/18 07:00 02/06/18 07:00 PT 11.8 SECONDS (9.4-12.5) 02/04/18 16:40 INR 1.03 02/04/18 16:40 APTT 35.3 Seconds (25.1-36.5) 02/04/18 16:40 Attending/Attestation - Attestation I have personally seen and examined this patient.: Yes I have fully participated in the care of the patient.: Yes I have reviewed all pertinent clinical information, including history, physical exam and plan: Yes Notes (Text): 02/06/18 13:01 Attending note; Patient seen and examined with resident. Patient is alert and awake. Currently patient denies any dizziness. Denies any headache, nausea, vomiting. Tolerating diet well. Patient is a 71-year-old [place] male with PMHx of DM2, HTN, Glaucoma, [place], s/p coronary stents, hx of rectal bleeding 1 year ago [place] [facility] [place]opal episode. Head CT and Maxillofacial CT unremarkable. Patient admitted for further workup and evaluation. Patient has minor abrasion in both knees and a small injury above the right lip. Denies any urinary or bowel incontinence. Currently denies any chest pain, shortness of breath. Syncope; possibly vasovagal .CT head is negative. Carotid Doppler ordered. Neurology evaluation appreciated. MRI and MRA of the head ordered. Bradycardia: cardiac enzymes negative .patient with history of coronary artery disease. Cardiology evaluation appreciated. Echocardiogram done Results pending. Hold metoprolol for bradycardia. Continue aspirin, Lipitor and lisinopril. Physical therapy evaluation requested. The diagnosis and follow-up plan discussed with patient's daughter in detail. Possible stress test on Wednesday. Upon discharge the patient will follow up with PMD Dr. Butler.
[2018-02-06] MEDS: Insulin Lispro (humaLOG) LOW Coverage SC SCH ×3 (10:09→17:40)
[2018-02-06] MEDS: Tobramycin 0.3% OPH OINT OD SCH ×4 (10:19→22:43)
[2018-02-06] MEDS: Dorzolamide 2%/Timolol 0.5% 100 DROP/10 ML BOTTLE OD SCH ×2 (10:19→17:40)
[2018-02-06] MEDS: acetaZOLAMIDE 500 mg SR Cap PO SCH ×2 (10:21→17:43)
--- NOTE | 2018-02-06 13:29 | MRI ---
Date of service: 02/05/2018 PROCEDURE: MRI BRAIN WITHOUT CONTRAST HISTORY: rule out new stroke COMPARISON: None available. TECHNIQUE: Multiplanar, multisequence MR images of the brain were obtained without intravenous contrast enhancement. FINDINGS: HEMORRHAGE: None DWI: No evidence of an acute or early subacute infarction. BRAIN PARENCHYMA: No mass effect or edema. There is a small chronic infarct in the right cerebellar hemisphere. VENTRICLES: Unremarkable. No hydrocephalus. CRANIUM: Unremarkable. ORBITS: Grossly unremarkable. PARANASAL SINUSES/MASTOIDS: Clear VASCULAR SYSTEM: Skull base flow voids intact. OTHER FINDINGS: None. IMPRESSION: No acute infarct or hemorrhage. Small chronic infarct in the right cerebellar hemisphere.
--- NOTE | 2018-02-06 13:36 | MRI ---
Date of service: 02/05/2018 PROCEDURE: Magnetic Resonance Angiography Brain HISTORY: VBI history of stroke COMPARISON: None available. TECHNIQUE: 3D time of flight MR angiography of the intracranial arteries was performed. Rotating maximum intensity projection images were generated. FINDINGS: INTERNAL CAROTID ARTERIES: Unremarkable. The skull base, petrous, cavernous and supraclinoid segments are bilaterally widely patient. ANTERIOR CEREBRAL ARTERIES: Unremarkable. A1 and A2 segments are widely patent. Smaller distal branches unremarkable, as visualized. MIDDLE CEREBRAL ARTERIES: Unremarkable. M1 and M2 segments are widely patent. Perisylvian branches grossly symmetric. POSTERIOR CIRCULATION: Basilar Artery: Unremarkable. Distal Vertebral Arteries: Unremarkable. Posterior Cerebral Arteries: Unremarkable. Posterior Inferior Cerebellar Arteries: Unremarkable. ANEURYSM/ VASCULAR MALFORMATIONS: None. OTHER FINDINGS: None. IMPRESSION: Unremarkable MR angiography of the brain.
--- NOTE | 2018-02-06 15:30 | PN ---
DATE: 02/06/2018 REASON FOR DICTATION: Covering Dr. Pate. REASON FOR THE CONSULTATION: Syncope, coronary artery disease, questionable history of CABG, history of PTCA. SUBJECTIVE: The patient denies any chest pain, shortness of breath or any palpitation. OBJECTIVE: GENERAL: Not in any apparent distress. VITAL SIGNS: Temperature afebrile, heart rate 60, blood pressure 149/91. HEENT: PERRLA, intact. NECK: Supple. No carotid bruit. No thyromegaly. CHEST: Clear to auscultation. HEART: S1 and S2 regular. ABDOMEN: Soft. EXTREMITIES: Clubbing and cyanosis negative. LABORATORY DATA: Blood workup as follows; WBC 6.7, hemoglobin 14.7, hematocrit 42.2, platelet count 181. Chemistry shows sodium 141, potassium pending, carbon dioxide 17, chloride 117, carbon dioxide 16. IMPRESSION: A 73-year-old male with past medical history significant for coronary artery disease, status post coronary artery bypass graft as per family 15 years ago in [facility], but I do not see any surgical history of percutaneous transluminal coronary angioplasty and stent in [facility] in 2008. Admitted with near syncopal episode. So far, troponin remains negative. No evidence of acute myocardial infarction. No arrhythmia noted in Telemetry. RECOMMENDATIONS: Neuro workup is in progress, so we will look at echo. Yesterday, there was no evidence of orthostatic hypotension. Lying blood pressure 134/71, sitting 142/71, standing 155/73. Follow up echo when it is done. Continue atorvastatin. Continue aspirin. Continue levothyroxine. Continue lisinopril for blood pressure. We will review echo. For risk stratification, consider stress test. We will transfer care tomorrow to Dr. Pate. Further recommendations as per Dr. Pate. We will supplement electrolytes as needed. Today, potassium is not back; possibly, there is some problem in the chemistry machine. We will follow up when the lab is available. Again, no evidence of orthostatic hypotension. We will transfer care tomorrow to Dr. Keshawn Pate. Krzysztof Cuevas MD [facility] # [phone]
--- NOTE | 2018-02-06 20:13 | US ---
PROCEDURE: Bilateral carotid artery duplex ultrasound HISTORY: Carotid stenosis PHYSICIAN(S): Keshawn Bacon MD. TECHNIQUE: Duplex sonography and color-flow Doppler were used to evaluate the carotid bifurcations and limited segments of the vertebral arteries bilaterally. FINDINGS: There is mild smooth heterogeneous plaque noted at the carotid bifurcations bilaterally. The peak systolic velocity in the proximal right internal carotid artery is 64 cm/sec. This corresponds to a 20 to 39% proximal right ICA stenosis. Normal systolic velocities are noted in the proximal right external carotid artery. There is antegrade flow in the right vertebral artery. The peak systolic velocity in the proximal left internal carotid artery is 81 cm/sec. This corresponds to a 20 to 39% proximal left ICA stenosis. Normal systolic velocities are noted in the proximal left external carotid artery. There is antegrade flow in the left vertebral artery. IMPRESSION: 1. Bilateral 20-39% proximal ICA stenoses. 2. Antegrade flow in both vertebral arteries.
--- NOTE | 2018-02-06 20:33 | CARD ---
APPROVED REPORT Date of service: 02/05/2018 EXAM: Two-dimensional and M-mode echocardiogram with Doppler and color Doppler. INDICATION SYNCOPE 2D DIMENSIONS Left Atrium (2D)3.5 (1.6-4.0cm)IVSd1.3 (0.7-1.1cm) LVDd3.6 (3.9-5.9cm)PWd1.5 (0.7-1.1cm) LVDs2.2 (2.5-4.0cm)FS (%) 38.3 % LVEF (%)69.5 (>50%) M-Mode DIMENSIONS Aortic Root3.10 (2.2-3.7cm)Aortic Cusp Exc.1.80 (1.5-2.0cm) Aortic Valve AoV Peak Slzazgpg976.0cm/Kassie Peak GR.9mmHg Mitral Valve MV E Jgoxebsr323.0cm/sMV A Oxmhocsr62.4cm/sE/A ratio1.6 TDI Lateral E' Peak V8.27cm/sMedial E' Peak V7.85cm/sE/Lateral E'13.2 E/Medial E'13.9 Tricuspid Valve TR Peak [id number]/sRAP [id number] Peak Gr.25mmHg [id number] LEFT VENTRICLE The left ventricle is normal size. There is mild to moderate concentric left ventricular hypertrophy. The left ventricular function is normal.EF-65% There is normal LV segmental wall motion. The left ventricular diastolic function is normal. No left ventricle thrombus noted on this study. There is no ventricular septal defect visualized. There is no left ventricular aneurysm. There is no mass noted in the left ventricle. RIGHT VENTRICLE The right ventricle is normal size. There is normal right ventricular wall thickness. The right ventricular systolic function is normal. ATRIA The left atrium size is normal. The right atrium size is normal. The interatrial septum is intact with no evidence for an atrial septal defect. AORTIC VALVE The aortic valve is mildly to moderately thickened. The aortic valve is mildly to moderately sclerotic. No aortic regurgitation is present. Aortic sclerosis Vs mild There is no aortic valvular vegetation. MITRAL VALVE The mitral valve is thickened but opens well. Mitral regurgitation is trace. There is no mitral valve stenosis. There is no evidence of mitral valve prolapse. TRICUSPID VALVE The tricuspid valve leaflets are thickened , but open well. There is mild tricuspid regurgitation.RVSP-35 mmof Hg. There is no tricuspid valve stenosis. There is no tricuspid valve prolapse or vegetation. PULMONIC VALVE The pulmonary valve is normal in structure. There is trace pulmonic valvular regurgitation. There is no pulmonic valvular stenosis. GREAT VESSELS The aortic root is normal in size. The ascending aorta is normal in size. The pulmonary artery is normal. The IVC is normal in size and collapses >50% with inspiration. PERICARDIAL EFFUSION There is no pleural effusion. There is no pericardial effusion. <Conclusion> Normal chamber Size.EF-65% Mitral regurgitation is trace. There is mild tricuspid regurgitation.RVSP-35 mmof Hg. The IVC is normal in size and collapses >50% with inspiration. There is no pericardial effusion. Aortic sclerosis Vs mild
[2018-02-06] MEDS: Latanoprost 2.5 ml Opht Soln OD SCH (22:43)
[2018-02-07] MEDS: Insulin Lispro (humaLOG) LOW Coverage SC SCH ×4 (00:23→17:26)
[2018-02-07] MEDS: Levothyroxine 25 MCG TAB PO SCH (05:51)
[2018-02-07 07:04] LABS: BASO # 0.05 K/mm3 (0.0-2.0); BASO % 0.8 % (0.0-3.0); EOS # 0.4 (0.0-0.7); EOS % 6.1 % (1.5-5.0); GRAN # 3.57 (1.4-6.5); GRAN % 56.9 % (50.0-68.0); HEMOGLOBIN 14.2 g/dL (14.0-18.0); LYMPH # 1.8 (1.2-3.4); LYMPH % 28.5 % (22.0-35.0); MEAN CELL VOLUME 96.8 fl (80.0-105.0); MEAN CORPUSCULAR HEMOGLOBIN 32.5 pg (25.0-35.0); MEAN CORPUSCULAR HGB CONC 33.6 g/dl (31.0-37.0); MEAN PLATELET VOLUME 10.9 fl (7.0-11.0); MONO # 0.5 (0.1-0.6); MONO % 7.7 % (1.0-6.0); RBC 4.37 10^6/uL (3.5-6.1); RED CELL DISTRIBUTION WIDTH 14.4 % (11.5-14.5); WHITE BLOOD COUNT 6.3 10^3/ul (4.5-11.0)
[2018-02-07 07:33] LABS: ALB/GLOB RATIO 1.2 (1.1-1.8); ALBUMIN 3.6 g/dL (3.0-4.8); CALCIUM 8.7 mg/dL (8.4-10.5)
--- NOTE | 2018-02-07 09:14 | CP.PCM.PN ---
<Herminia Salinas - Last Filed: 02/07/18 17:33> Subjective - Date & Time of Evaluation Date of Evaluation: 02/07/18 Time of Evaluation: 09:14 - Subjective Subjective: Herminia Salinas, PGY2, Neurology Progress Note for Dr Bee: Patient seen and examined at bedside. No acute events overnight. Denies syncopal episode since admission, focal weakness, seizure like episodes, dizziness, nausea, vomiting, chest pain, sob, diaphoresis. Objective - Vital Signs/Intake and Output Vital Signs (last 24 hours): Temp Pulse Resp BP Pulse Ox 98.0 F 63 18 106/61 99 02/07/18 06:00 02/07/18 06:00 02/07/18 06:00 02/07/18 06:00 02/06/18 18:00 Intake and Output: 02/07/18 02/07/18 06:59 18:59 Intake Total 760 Balance 760 - Medications Medications: Current Medications Acetazolamide (Diamox Sequels 500 Mg Sr Cap) 500 mg PO BID [facility] Last Admin: 02/06/18 17:43 Dose: 500 mg Aspirin (Ecotrin) 81 mg PO DAILY [facility] Last Admin: 02/06/18 10:21 Dose: 81 mg Atorvastatin Calcium (Lipitor) 20 mg PO DIN [facility] Last Admin: 02/06/18 17:43 Dose: 20 mg Dextrose (Dextrose 50% Inj) 0 ml IV STAT PRN; Protocol PRN Reason: Hypoglycemia Protocol Dorzolamide/Timolol (Cosopt 2%-0.5% Opht) 1 drop OD BID [facility] Last Admin: 02/06/18 17:40 Dose: 1 drop Famotidine (Pepcid) 40 mg PO HS [facility] Last Admin: 02/06/18 22:43 Dose: 40 mg Dextrose (Dextrose 5% In Water 1000 Ml) 1,000 mls @ 0 mls/hr IV .Q0M PRN; Protocol PRN Reason: Hypoglycemia Protocol Insulin Human Lispro (Humalog Low) 0 units SC ACHS [facility]; Protocol Last Admin: 02/07/18 08:25 Dose: Not Given Latanoprost (Xalatan Opht) 0 ml OD [facility] Last Admin: 02/06/18 22:43 Dose: 2.5 ml Levothyroxine Sodium (Synthroid) 25 mcg PO 0600 [facility] Last Admin: 02/07/18 05:51 Dose: 25 mcg Lisinopril (Zestril) 10 mg PO DAILY [facility] Last Admin: 02/06/18 10:21 Dose: 10 mg Metoprolol Tartrate (Lopressor) 12.5 mg PO BID [facility] Last Admin: 02/05/18 10:27 Dose: 12.5 mg Tobramycin Sulfate (Tobrex 0.3% Ophth Oint) 0 appl OD QID [facility] Last Admin: 02/06/18 22:43 Dose: 1 applic - Labs Labs: 02/07/18 06:30 02/07/18 06:30 PT 11.8 SECONDS (9.4-12.5) 02/04/18 16:40 INR 1.03 02/04/18 16:40 APTT 35.3 Seconds (25.1-36.5) 02/04/18 16:40 - Additional Findings Additional findings: - Constitutional Appears: Well - Head Exam Head Exam: NORMOCEPHALIC. + abrasion to face - Eye Exam Eye Exam: EOMI, Normal appearance, PERRL - ENT Exam ENT Exam: Mucous Membranes Moist, Normal Exam - Neck Exam Neck exam: Positive for: Normal Inspection - Cardiovascular Exam Cardiovascular Exam: REGULAR RHYTHM - Rectal Exam Rectal Exam: Deferred - Extremities Exam Extremities exam: Positive for: normal inspection - Back Exam Back exam: NORMAL INSPECTION - Neurological Exam Neurological exam: Alert, CN II-XII Intact, Normal Gait, Oriented x3, Reflexes Normal - Psychiatric Exam Psychiatric exam: Normal Affect, Normal Mood - Skin: Warm, dry Assessment and Plan - Assessment and Plan (Free Text) Assessment: 73 year old man with PMH DM2, HTN, Glaucoma, [place](2008), s/p coronary stenting(2009-bare metal stentx2), hx of rectal bleeding, CVA in 2009, presents s/p syncopal episode associated with a mechanical fall: - likely vasovagal, unlikely seizure or stroke - Orthostatic VS negative - Head CT showed small chronic lacunar infarct in left basal ganglia. - Carotid US, head/neck MRA negative - Brain MRI showed small chronic infarct in right cerebellar hemisphere. - Cardiology following, f/u recs. - Cleared to discharge from neurology standpoint. Discussed with Dr Bee. <Kirill Bee - Last Filed: 02/09/18 18:12> Objective - Vital Signs/Intake and Output Vital Signs (last 24 hours): Temp Pulse Resp BP Pulse Ox 97.9 F 63 18 105/63 100 02/08/18 14:00 02/08/18 14:00 02/08/18 14:00 02/08/18 14:00 02/08/18 14:00 - Labs Labs: 02/08/18 07:00 02/08/18 07:00 PT 11.8 SECONDS (9.4-12.5) 02/04/18 16:40 INR 1.03 02/04/18 16:40 APTT 35.3 Seconds (25.1-36.5) 02/04/18 16:40 Assessment and Plan (1) Syncope Status: Acute Attending/Attestation - Attestation I have personally seen and examined this patient.: Yes I have fully participated in the care of the patient.: Yes I have reviewed all pertinent clinical information, including history, physical exam and plan: Yes Notes (Text): 02/09/18 18:11 I agree with the assessment and plan. The symptoms are more consistent with neurocardiogenic syncope. Continue cardiac work-up per cardiology. 02/09/18 18:11
[2018-02-07] MEDS ORDERED: Potassium Chloride 20 mEq ER Tab PO ONE (10:36)
[2018-02-07] MEDS: Dorzolamide 2%/Timolol 0.5% 100 DROP/10 ML BOTTLE OD SCH ×2 (11:08→17:31)
[2018-02-07] MEDS: acetaZOLAMIDE 500 mg SR Cap PO SCH ×2 (11:10→17:30)
[2018-02-07] MEDS: Tobramycin 0.3% OPH OINT OD SCH ×4 (11:11→21:01)
--- NOTE | 2018-02-07 11:43 | PN ---
DATE: 02/07/2018 CARDIOLOGY FOLLOWUP SUBJECTIVE: The patient is asymptomatic. No chest pain. No shortness of breath. PHYSICAL EXAMINATION: VITAL SIGNS: Blood pressure varies from 127-106 systolic, heart rates in the 60s. NECK: Negative JVD. LUNGS: Without rales. HEART: Reveals S1, S2. EXTREMITIES: Without edema. LABORATORY DATA: BUN and creatinine are 20 and 1.6, potassium is 3.3, hemoglobin is 14.2. IMPRESSION: 1. Status post syncope. 2. No evidence for cardiac cause of a syncope. 3. Coronary artery disease. 4. History of coronary artery bypass surgery. 4. Hypercholesterolemia. 5. Diabetes mellitus. PLAN: Given these findings, there is no identifiable cardiac cause of his syncope. We will discontinue telemetry today. I have instructed the patient to follow up with his master tax advisor in [place] who has been seeing him for the past several years. Keshawn Pate MD
--- NOTE | 2018-02-07 18:00 | CP.PCM.PN ---
<June Haro - Last Filed: 02/08/18 16:24> Subjective - Date & Time of Evaluation Date of Evaluation: 02/07/18 Time of Evaluation: 10:00 - Subjective Subjective: INTERNAL MEDICINE PROGRESS NOTE FOR DR. JAYDEN DiazO. PGY-1 Patient seen and examined at bedside today. No acute complaints or nursing events overnight. Pt had some events of hypoglycemia overnight which may have contributed to previous syncopal episode. He denies fevers, chills, chest pain, palpitations, shortness of breath, headache, dizziness, nausea, vomiting, diarrhea. Objective - Vital Signs/Intake and Output Vital Signs (last 24 hours): Temp Pulse Resp BP Pulse Ox 97.6 F 56 L 20 127/79 99 02/07/18 12:00 02/07/18 12:00 02/07/18 12:00 02/07/18 12:00 02/06/18 18:00 Intake and Output: 02/07/18 02/07/18 06:59 18:59 Intake Total 760 Balance 760 - Medications Medications: Current Medications Acetazolamide (Diamox Sequels 500 Mg Sr Cap) 500 mg PO BID [facility] Last Admin: 02/07/18 17:30 Dose: 500 mg Aspirin (Ecotrin) 81 mg PO DAILY [facility] Last Admin: 02/07/18 11:07 Dose: 81 mg Atorvastatin Calcium (Lipitor) 20 mg PO DIN [facility] Last Admin: 02/07/18 17:30 Dose: 20 mg Dextrose (Dextrose 50% Inj) 0 ml IV STAT PRN; Protocol PRN Reason: Hypoglycemia Protocol Dorzolamide/Timolol (Cosopt 2%-0.5% Opht) 1 drop OD BID [facility] Last Admin: 02/07/18 17:31 Dose: 1 drop Famotidine (Pepcid) 40 mg PO HS [facility] Last Admin: 02/06/18 22:43 Dose: 40 mg Dextrose (Dextrose 5% In Water 1000 Ml) 1,000 mls @ 0 mls/hr IV .Q0M PRN; Protocol PRN Reason: Hypoglycemia Protocol Insulin Human Lispro (Humalog Low) 0 units SC ACHS [facility]; Protocol Last Admin: 02/07/18 17:26 Dose: Not Given Latanoprost (Xalatan Opht) 0 ml OD HS [facility] Last Admin: 02/06/18 22:43 Dose: 2.5 ml Levothyroxine Sodium (Synthroid) 25 mcg PO 0600 [facility] Last Admin: 02/07/18 05:51 Dose: 25 mcg Lisinopril (Zestril) 10 mg PO DAILY [facility] Last Admin: 02/07/18 11:07 Dose: 10 mg Metoprolol Tartrate (Lopressor) 12.5 mg PO BID [facility] Last Admin: 02/05/18 10:27 Dose: 12.5 mg Tobramycin Sulfate (Tobrex 0.3% Ophth Oint) 0 appl OD QID [facility] Last Admin: 02/07/18 17:31 Dose: 1 applic - Labs Labs: 02/07/18 06:30 02/07/18 06:30 PT 11.8 SECONDS (9.4-12.5) 02/04/18 16:40 INR 1.03 02/04/18 16:40 APTT 35.3 Seconds (25.1-36.5) 02/04/18 16:40 - Constitutional Appears: Well, Non-toxic, No Acute Distress - Head Exam Head Exam: ATRAUMATIC, NORMAL INSPECTION - Eye Exam Eye Exam: EOMI, Normal appearance - ENT Exam ENT Exam: Mucous Membranes Moist, Normal Exam - Neck Exam Neck Exam: Full ROM, Normal Inspection - Respiratory Exam Respiratory Exam: Clear to Ausculation Bilateral, NORMAL BREATHING PATTERN - Cardiovascular Exam Cardiovascular Exam: REGULAR RHYTHM, +S1, +S2 - GI/Abdominal Exam GI & Abdominal Exam: Soft, Normal Bowel Sounds - Extremities Exam Extremities Exam: Normal Capillary Refill, Normal Inspection - Back Exam Back Exam: NORMAL INSPECTION - Neurological Exam Neurological Exam: Alert, Awake, Oriented x3 - Psychiatric Exam Psychiatric exam: Normal Affect, Normal Mood - Skin Skin Exam: Dry, Intact, Warm Assessment and Plan - Assessment and Plan (Free Text) Assessment: 73 year old man with PMH DM2, HTN, Glaucoma, [place](2009), s/p coronary stenting(2008-bare metal stentx2), hx of rectal bleeding, CVA in 2008, presents s/p syncopal episode associated with a mechanical fall Plan: Syncope likely vasovagal, unlikely seizure or stroke Orthostatic VS negative EKG showing sinus bradycardia, no ST elevations/depressions T wave intervals CXR negative for acute process Head CT: Small chronic lacunar left basal ganglia, chronic lobar infarction inferior right cerebellum CT Maxillofacial bones without contrast: Unremarkable Carotid US, head/neck MRA negative Electrolyte wnl Cleared to discharge from neurology standpoint. Cardiology consulted Dr. Pate. Recommended outpatient evaluation DM2 Pt noted to have hypoglycemic episodes. Endocrinology consulted Decrease patients glipizide dose. Pt having hypoglycemic episodes ISS - low ACHS Hypoglycemia protocol Hypothyroidism TSH 7.16 T4: 0.75 Continue synthroid Hx CAD Continue ASA, atorvastatin EKG showing sinus bradycardia HTN Start lisinopril 10mg. Hold metoprolol due to bradycardic episodes Hx CVA Head CT: Small chronic lacunar left basal ganglia, chronic lobar infarction inferior right cerebellum Continue ASA, statin GI/DVT ppx Pepcid SCD <Rapp,Amanda R - Last Filed: 02/09/18 08:24> Objective - Vital Signs/Intake and Output Vital Signs (last 24 hours): Temp Pulse Resp BP Pulse Ox 97.9 F 63 18 105/63 100 02/08/18 14:00 02/08/18 14:00 02/08/18 14:00 02/08/18 14:00 02/08/18 14:00 - Labs Labs: 02/08/18 07:00 02/08/18 07:00 PT 11.8 SECONDS (9.4-12.5) 02/04/18 16:40 INR 1.03 02/04/18 16:40 APTT 35.3 Seconds (25.1-36.5) 02/04/18 16:40 Attending/Attestation - Attestation I have personally seen and examined this patient.: Yes I have fully participated in the care of the patient.: Yes I have reviewed all pertinent clinical information, including history, physical exam and plan: Yes Notes (Text): Patient seen and examined by me with resident at 11:30AM on 02/07/18 with resident. Case including discharge plan discussed with resident. Agree with above with following additions/corrections. Patient is a 71-year-old male with past medical history significant for type 2 diabetes, hypertension, glaucoma, coronary artery disease status post stent, rectal bleeding, and CVA who presented to the emergency room status post near syncope and fall. Patient states he is feeling much better. He denies any headaches, dizziness, lightheadedness, or change in vision. Patient is ambulating. Denies any pain. No chest pain or palpitations. No shortness of breath. No nausea, vomiting, or abd ominal pain. No fevers or chills. No dysuria. No diarrhea or constipation. Physical exam: Gen: Awake and alert sitting up in bed in no acute distress HEENT: Normocephalic, atraumatic. Extraocular muscles intact, pupils equal reactive. No scleral icterus. Oropharynx is pink and moist. Positive healing abrasion above left upper lip. Neck is supple. Cardiovascular: Normal rhythm. Normal S1, S2. No murmurs, rubs, or gallops appreciated Pulmonary: Normal respiratory effort. No rhonchi, rales, or wheezing appreciated. Gastrointestinal: Soft, nontender. Nondistended. Positive bowel sounds all 4 quadrants, no guarding. Musculoskeletal: Moves all extremities. No edema appreciated. No calf tendernes s. Central nervous system: AAO x 3. CN2-12 grossly intact. Dermatologic: Skin warm and dry. Assessment and plan: Patient is a 71-year-old male with past medical history significant for type 2 diabetes, hypertension, glaucoma, coronary artery disease status post stent, rectal bleeding, and CVA who presented to the emergency room status near syncope and fall. 1. Near syncope and fall. Head CT per radiologist showed small chronic lacunar left basal ganglia and chronic low lo-infarction inferior right cerebellum, age appropriate related neuro degenerative change. Orbit/face CT per radiologist showed unremarkable noncontrast enhanced CT of the maxillofacial bones. Brain MRI per radiologist showed no acute infarct or hemorrhage, small chronic infarct in the right cerebellar hemisphere. Head MRA per radiologist shows is unremarkable MR angiography of the brain. Neck MRA per radiologist shows normal MR angiography of the neck. Carotid ultrasound per radiologist shows bilateral 20-39% proximal ICA stenosis, antegrade flow in both vertebral arteries. 2-D echo per bioinformatics scientist shows EF of 65%, mitral regurgitation is trace edema, there is no pericardial effusion, aortic sclerosis versus mild aortic stenosis. Neurology following, recommendations appreciated. Orthostatics negative. Per neurology likely vasovagal and unlikely seizure or stroke. Patient cleared from neurology standpoint. Continue aspirin and Lipitor. Cardiology following, recommendations appreciated. No cardiac cause per cardiology. 2. Bradycardia. Improved. Continue to monitor. Continue to hold metoprolol. 3. Coronary artery disease. Continue aspirin and Lipitor. Continue lisinopril. Will held secondary to bradycardia. 4. Type 2 diabetes with periods of hypoglycemia. We'll hold insulin sliding scale and monitor Accu-Cheks for now. 5. Hypertension. Continue lisinopril. 6. Hypothyroidism. Continue Synthroid 25 mg daily. 7. History of CVA. Continue aspirin and Lipitor. 8. Glaucoma. Continue home eyedrops. Case was discussed in detail with the patient regarding current diagnosis and treatment plan.
[2018-02-07] MEDS: Latanoprost 2.5 ml Opht Soln OD SCH (21:00)
[2018-02-08 00:12] VITALS: RESP 18
[2018-02-08 07:18] LABS: BASO # 0.05 K/mm3 (0.0-2.0); BASO % 0.7 % (0.0-3.0); EOS # 0.4 (0.0-0.7); EOS % 5.8 % (1.5-5.0); GRAN # 3.76 (1.4-6.5); GRAN % 56.2 % (50.0-68.0); HEMOGLOBIN 14.9 g/dL (14.0-18.0); LYMPH # 1.9 (1.2-3.4); LYMPH % 28.6 % (22.0-35.0); MEAN CELL VOLUME 96.3 fl (80.0-105.0); MEAN CORPUSCULAR HEMOGLOBIN 32.7 pg (25.0-35.0); MEAN CORPUSCULAR HGB CONC 33.9 g/dl (31.0-37.0); MEAN PLATELET VOLUME 10.8 fl (7.0-11.0); MONO # 0.6 (0.1-0.6); MONO % 8.7 % (1.0-6.0); RBC 4.56 10^6/uL (3.5-6.1); RED CELL DISTRIBUTION WIDTH 14.3 % (11.5-14.5); WHITE BLOOD COUNT 6.7 10^3/ul (4.5-11.0)
[2018-02-08 07:27] LABS: ALB/GLOB RATIO 1.3 (1.1-1.8); ALBUMIN 3.8 g/dL (3.0-4.8); CALCIUM 8.6 mg/dL (8.4-10.5)
[2018-02-08] MEDS ORDERED: Potassium Chloride 20 mEq ER Tab PO STA (08:03)
[2018-02-08] MEDS: Levothyroxine 25 MCG TAB PO SCH (08:14)
[2018-02-08] MEDS: acetaZOLAMIDE 500 mg SR Cap PO SCH (09:25)
[2018-02-08] MEDS: Dorzolamide 2%/Timolol 0.5% 100 DROP/10 ML BOTTLE OD SCH (09:29)
[2018-02-08] MEDS: Tobramycin 0.3% OPH OINT OD SCH ×2 (09:29→13:46)
[2018-02-08 10:00] VITALS: PULSE 63; TEMP 97.9
--- NOTE | 2018-02-08 15:09 | MRI ---
Date of service: 02/05/2018 PROCEDURE: MR Angiography of the neck without contrast HISTORY: VBI history of stroke and kindney injury COMPARISON: None available. TECHNIQUE: 3D [id number] angiography of the neck was performed. Rotating maximum intensity projection images of the cervical carotid and vertebral arteries were generated. The origins of the common carotid arteries were not visualized, which is a limitation inherent to the non-contrast time of flight technique. FINDINGS: RIGHT CAROTID ARTERIES: Common Carotid Artery: Normal. Carotid Bifurcation: Normal. Internal Carotid Artery:Normal. External Carotid Artery (proximal branches): Normal. LEFT CAROTID ARTERIES: Common Carotid Artery: Normal. Carotid Bifurcation: Normal. Internal Carotid Artery:Normal. External Carotid Artery (proximal branches): Normal. VERTEBRAL ARTERIES: Right Vertebral Artery: Normal. Left Vertebral Artery: Normal. OTHER FINDINGS: None. IMPRESSION: Normal MR Angiography of the neck.
[2018-02-08 15:34] VITALS: BP 105/63; O2SAT 100
--- NOTE | 2018-02-08 16:26 | CP.PCM.DIS ---
Provider - Provider Date of Admission: 02/07/18 11:30 Attending physician: Corazon Sewell MD Consults: Cardiology: Dr. Pate Neurology: Dr. Bee Endocrinology: Dr. Ricketts Time Spent in preparation of Discharge (in minutes): 45 Hospital Course - Lab Results Lab Results: Most Recent Lab Values WBC 6.7 10^3/ul (4.5-11.0) 02/08/18 07:00 RBC 4.56 10^6/uL (3.5-6.1) 02/08/18 07:00 Hgb 14.9 g/dL (14.0-18.0) 02/08/18 07:00 Hct 43.9 % (42.0-52.0) 02/08/18 07:00 MCV 96.3 fl (80.0-105.0) 02/08/18 07:00 MCH 32.7 pg (25.0-35.0) 02/08/18 07:00 MCHC 33.9 g/dl (31.0-37.0) 02/08/18 07:00 RDW 14.3 % (11.5-14.5) 02/08/18 07:00 Plt Count 192 10^3/uL (120.0-450.0) 02/08/18 07:00 MPV 10.8 fl (7.0-11.0) 02/08/18 07:00 Gran % 56.2 % (50.0-68.0) 02/08/18 07:00 Lymph % (Auto) 28.6 % (22.0-35.0) 02/08/18 07:00 [place] % (Auto) 8.7 % (1.0-6.0) H 02/08/18 07:00 Eos % (Auto) 5.8 % (1.5-5.0) H 02/08/18 07:00 Baso % (Auto) 0.7 % (0.0-3.0) 02/08/18 07:00 Gran # 3.76 (1.4-6.5) 02/08/18 07:00 Lymph # (Auto) 1.9 (1.2-3.4) 02/08/18 07:00 [place] # (Auto) 0.6 (0.1-0.6) 02/08/18 07:00 Eos # (Auto) 0.4 (0.0-0.7) 02/08/18 07:00 Baso # (Auto) 0.05 K/mm3 (0.0-2.0) 02/08/18 07:00 PT 11.8 SECONDS (9.4-12.5) 02/04/18 16:40 INR 1.03 02/04/18 16:40 APTT 35.3 Seconds (25.1-36.5) 02/04/18 16:40 Sodium 141 mmol/L (132-148) 02/08/18 07:00 Potassium 3.4 mmol/L (3.6-5.0) L 02/08/18 07:00 Chloride 115 mmol/L (98-107) H 02/08/18 07:00 Carbon Dioxide 18 mmol/L (21-33) L 02/08/18 07:00 Anion Gap 12 (10-20) 02/08/18 07:00 BUN 21 mg/dL (7-21) 02/08/18 07:00 Creatinine 1.4 mg/dl (0.8-1.5) 02/08/18 07:00 Est GFR ( Amer) 60 02/08/18 07:00 Est GFR (Non-Af Amer) 50 02/08/18 07:00 POC Glucose (mg/dL) 139 mg/dL (65-110) H 02/08/18 16:02 Random Glucose 105 mg/dL (70-110) 02/08/18 07:00 Hemoglobin A1c 5.7 % (4.2-6.5) 02/06/18 07:00 Calcium 8.6 mg/dL (8.4-10.5) 02/08/18 07:00 Phosphorus 3.2 mg/dL (2.5-4.5) 02/04/18 18:00 Magnesium 2.2 mg/dL (1.7-2.2) 02/04/18 16:44 Total Bilirubin 0.7 mg/dL (0.2-1.3) 02/08/18 07:00 AST 21 U/L (17-59) 02/08/18 07:00 ALT 23 U/L (7-56) 02/08/18 07:00 Alkaline Phosphatase 81 U/L (38-126) 02/08/18 07:00 Lactate Dehydrogenase 458 U/L (333-699) 02/04/18 16:44 Total Creatine Kinase 148 U/L (35-230) 02/04/18 16:44 Troponin I 0.01 ng/mL 02/05/18 07:00 Total Protein 6.8 g/dL (5.8-8.3) 02/08/18 07:00 Albumin 3.8 g/dL (3.0-4.8) 02/08/18 07:00 Globulin 2.9 gm/dL 02/08/18 07:00 Albumin/Globulin Ratio 1.3 (1.1-1.8) 02/08/18 07:00 Triglycerides 122 mg/dL (35-160) 02/06/18 07:00 Cholesterol 108 mg/dL (130-200) L 02/06/18 07:00 LDL Cholesterol Direct 51 mg/dL (0-129) 02/06/18 07:00 HDL Cholesterol 28 mg/dL (29-60) L 02/06/18 07:00 Free T4 0.75 ng/dL (0.78-2.19) L 02/05/18 07:00 TSH 3rd Generation 7.16 mIU/mL (0.46-4.68) H 02/05/18 07:00 Urine Opiates Screen Negative (NEGATIVE) 02/05/18 06:00 Urine Methadone Screen Negative (NEGATIVE) 02/05/18 06:00 Ur Barbiturates Screen Negative (NEGATIVE) 02/05/18 06:00 Ur Phencyclidine Scrn Negative (NEGATIVE) 02/05/18 06:00 Ur Amphetamines Screen Negative (NEGATIVE) 02/05/18 06:00 U Benzodiazepines Scrn Negative (NEGATIVE) 02/05/18 06:00 U Oth Cocaine Metabols Negative (NEGATIVE) 02/05/18 06:00 U Cannabinoids Screen Negative (NEGATIVE) 02/05/18 06:00 - Hospital Course Hospital Course: 73 year old man with PMH DM2, HTN, Glaucoma, [place](2008), s/p coronary stenting(2008-bare metal stentx2), hx of rectal bleeding, CVA in 2008 admitted to [facility] [place] s/p syncopal episode associated with a mechanical fall. Pt was evaluated for vasovagal vs cardiogenic vs neurogenic syncope. EKG showed sinus bradycardia, no ST elevations/depressions T wave intervals, CXR was negative for acute process, Head CT: Small chronic lacunar left basal ganglia, chronic lobar infarction inferior right cerebellum, CT Maxillofacial bones without contrast: Unremarkable, Carotid US, head/neck MRA negative and electrolytes were within normal limits. Pt was found to have some hypoglycemic episodes along with low blood pressure. Pt was also found to have hypothyroidism and started on levothyroxine. Diabetes and hypertension medications were adjusted and endocrinology was consulted. Neurology had evaluated the patient and cleared the patient for discharge after extensive evaluation. Cardiology evaluated the patient and recommended follow-up in the outpatient setting for further evaluation. - Date & Time of H&P Date of H&P: 02/04/18 Time of H&P: 18:44 Discharge Exam - Head Exam Head Exam: ATRAUMATIC, NORMAL INSPECTION - Eye Exam Eye Exam: EOMI, Normal appearance - ENT Exam ENT Exam: Mucous Membranes Dry, Mucous Membranes Moist - Neck Exam Neck exam: Normal Inspection - Respiratory Exam Respiratory Exam: NORMAL BREATHING PATTERN, UNREMARKABLE. absent: Accessory Muscle Use - Cardiovascular Exam Cardiovascular Exam: REGULAR RHYTHM, +S1, +S2 - GI/Abdominal Exam GI & Abdominal Exam: Normal Bowel Sounds, Soft. absent: Tenderness - Extremities Exam Extremities exam: normal inspection - Back Exam Back exam: NORMAL INSPECTION - Neurological Exam Neurological exam: Alert, Oriented x3 - Psychiatric Exam Psychiatric exam: Normal Affect, Normal Mood - Skin Skin Exam: Dry, Intact, Warm Discharge Plan - Discharge Medications Prescriptions: Glipizide [Glipizide ER] 2.5 mg PO DAILY #30 ter Levothyroxine [Synthroid] 25 mcg PO 0600 #14 tab Lisinopril [Zestril] 10 mg PO DAILY #30 tablet Tobramycin [Tobrex] 5 ml OS QID #1 drops - Follow Up Plan Condition: FAIR Disposition: HOME/ ROUTINE Instructions: Syncope (Fainting) (DC), Skin Abrasions (DC), Glipizide, Levothyroxine, Syncope (DC), Syncope (GEN) Additional Instructions: Please follow up with your primary care doctor, Dr. Butler, within 3-5 days of being discharged. Please discuss with him that you have been started on a new medication, Synthroid, as your thyroid function was found to be low on this admission. Please discuss with him that your previous medication, Glipizide 5mg, that you had been taking previously, has been reduced in dosage to 2.5mg secondary to low sugars. Please do not take this medication if you are skipping meals. You will need to check your blood sugar atleast 3 times a day. Please [place] up [place] back tender insulation [place] [facility] [place] and discussed with Dr. Pate, the back tender insulation board who saw you while you were admitted at [facility]. We have also reduced your blood pressure medication lisinopril form 20mg to 10mg as your blood pressure was on the lower side. Please also discuss this with your primary care doctor. Please continue taking all other home medications as prescribed. Please get any refills needed on your medications from your primary care doctor. If your symptoms return, please seek emergency medical attention immediately. Referrals: Yousuf Butler MD [Family Provider] - Clinical Quality Measures - Date & Time of Discharge Summary Date of Discharge Summary: 02/08/18 Time of Discharge Summary: 17:00
== END 2018-02-08 16:23 | disposition home or self-care (01) | DRG 294 ==
LOC: ED 15:25 → ERH 17:52 → 2RNO 02-05 01:11 → OBSVTOIN 02-07 11:30 → 5RNO 02-07 23:09
PROVIDERS: ADMIT Internal Medicine; ATTEND Internal Medicine
DX: E11.649 Type 2 diabetes mellitus with hypoglycemia without coma (principal); R55 Syncope and collapse; H40.9 Unspecified glaucoma; E03.9 Hypothyroidism, unspecified; I10 Essential (primary) hypertension; E78.00 Pure hypercholesterolemia, unspecified; I25.10 Atherosclerotic heart disease of native coronary artery without angina pectoris; E78.5 Hyperlipidemia, unspecified; R00.1 Bradycardia, unspecified; Z79.82 Long term (current) use of aspirin; Z87.442 Personal history of urinary calculi; Z86.73 Personal history of transient ischemic attack (TIA), and cerebral infarction without residual deficits; I25.2 Old myocardial infarction; Z87.891 Personal history of nicotine dependence; Z95.1 Presence of aortocoronary bypass graft; Z95.5 Presence of coronary angioplasty implant and graft; Z79.84 Long term (current) use of oral hypoglycemic drugs